=== PATIENT | female | born 1980 ===

== ENCOUNTER 2019-04-25 17:54 | Emergency (ER) | payer OTHER ==
[2019-04-25 18:08] VITALS: BP 109/70; PULSE 71; RESP 18; TEMP 98.4
--- NOTE | 2019-04-25 19:49 | ED ---
Upper Extremity HPI - General Chief Complaint: Extremity Injury, Upper Stated Complaint: [facility]-Wrist Injury Time Seen by Provider: 04/25/19 19:35 Source: patient Mode of arrival: ambulatory Limitations: no limitations - History of Present Illness Initial Comments: Patient is a 38-year-old female presents to the ER with left wrist pain. Patient states she has been having pain in her left wrist for about a month now. She works on an assembly line making Meters for cars. She was working today when one of the meters fell onto her palmar aspect of her left wrist and her pain increased. Patient reports some numbness and tingling into her hand. Patient is right-handed dominant. Patient reports no other injuries or complaints at this time. - Related Data Allergies Allergy/AdvReac Type Severity Reaction Status Date / Time vancomycin Allergy Anaphylaxis Verified 04/25/19 18:09 Review of Systems ROS Statement: Those systems with pertinent positive or pertinent negative responses have been documented in the HPI. ROS Other: All systems not noted in ROS Statement are negative. Past Medical History Past Medical History: No Reported History History of Any Multi-Drug Resistant Organisms: None Reported Past Surgical History: Hysterectomy Additional Past Surgical History / Comment(s): cyst on tail bone removed Past Psychological History: No Psychological Hx Reported Smoking Status: Never smoker Past Alcohol Use History: Occasional Past Drug Use History: None Reported General Exam - General Exam Comments Initial Comments: GENERAL: Well-appearing, well-nourished and in no acute distress. HEAD: Atraumatic, normocephalic. EYES: Pupils equal round and reactive to light, extraocular movements intact, sclera anicteric, conjunctiva are normal. ENT: TMs normal, nares patent, oropharynx clear without exudates. Moist mucous membranes. NECK: Normal range of motion, supple without lymphadenopathy or JVD. LUNGS: Breath sounds clear to auscultation bilaterally and equal. No wheezes rales or rhonchi. HEART: Regular rate and rhythm without murmurs, rubs or gallops. ABDOMEN: Soft, nontender, normoactive bowel sounds. No guarding, no rebound. No masses appreciated. : Deferred EXTREMITIES: Pain with palpitation over the entire left wrist area mostly palmar aspect. Patient is unable to flex or extend wrist. Patient is able to pronate and supinate. Strength is not tested at this time due to pain. No erythema or bruising noted. NEUROLOGICAL: Cranial nerves II through XII grossly intact. Normal speech, normal gait. PSYCH: Normal mood, normal affect. SKIN: Warm, Dry, normal turgor, no rashes or lesions noted. Limitations: no limitations Course Vital Signs 04/25/19 18:04 Temperature 98.4 F Pulse Rate 71 Respiratory 18 Rate Blood Pressure 109/70 O2 Sat by Pulse 98 Oximetry Medical Decision Making - Medical Decision Making Patient is a 38-year-old female complaining of left wrist pain. Patient states she has had pain in this left wrist for about a month but then today ammeter from work fell onto the palmar aspect of her left wrist increasing her pain. On exam she is unable to extend or flex the wrist and is having tenderness all around the wrist. X-ray left wrist reveals no no fractures. Discussed with patient this is most likely carpal tunnel syndrome. Recommended brace to wear while sleeping. Case discussed with Dr. Cleaning. Disposition Clinical Impression: Wrist pain, left, Carpal tunnel syndrome of left wrist Disposition: HOME SELF-CARE Condition: Stable Instructions (If sedation given, give patient instructions): Wrist Injury (ED) Additional Instructions: Please return to the Emergency Department if symptoms worsen or any other concerns. Follow-up with hand specialist in one week if symptoms continue. Is patient prescribed a controlled substance at d/c from ED?: No Referrals: None,Stated [Primary Care Provider] - 1-2 days
--- NOTE | 2019-04-25 20:39 | XR ---
EXAMINATION TYPE: XR wrist complete LT DATE OF EXAM: 04/25/2019 COMPARISON: NONE HISTORY: Wrist pain TECHNIQUE: 4 views FINDINGS: Carpal bones appear intact. I see no fracture nor dislocation. Joint spaces are normal. IMPRESSION: Normal left wrist.
== END 2019-04-25 21:21 | disposition home or self-care (01) ==
LOC: EC 17:54
DX: G56.02 Carpal tunnel syndrome, left upper limb (principal); Z88.1 Allergy status to other antibiotic agents
CPT/HCPCS: 99283

== ENCOUNTER → 2020-07-12 | Outpatient (CLI) | payer OTHER ==
--- NOTE | 2020-07-12 14:46 | XR ---
EXAMINATION TYPE: XR hand complete RT DATE OF EXAM: 07/12/2020 COMPARISON: None HISTORY: Pain TECHNIQUE: Three-view right hand FINDINGS: No acute fractures or dislocations are evident. Soft tissues appear normal. Joint spaces ar e preserved. Attention is paid to the fifth digit at the location of the patient's greatest pain. Follow-up exams can be performed 7-10 days from acute trauma for continued pain. IMPRESSION: 1. No acute osseous abnormality right hand.
--- NOTE | 2020-07-12 14:47 | XR ---
EXAMINATION TYPE: XR forearm RT DATE OF EXAM: 07/12/2020 COMPARISON: None HISTORY: Pain TECHNIQUE: 2 view right forearm FINDINGS: Right forearm is examined in 2 projections. No acute fractures or dislocations are evident. A small olecranon spur is present. Radius aligns normally with the humerus. No suspicious abnormalit y along the ulnar aspect of the forearm is evident at the location of the patient's forearm pain. Follow-up studies can be performed 7-10 days from acute trauma for continued pain. IMPRESSION: 1. Normal two-view performed
--- NOTE | 2020-07-12 14:49 | XR ---
EXAMINATION TYPE: XR wrist complete RT DATE OF EXAM: 07/12/2020 COMPARISON: None HISTORY: Pain TECHNIQUE: 4 view right wrist FINDINGS: No acute fractures or dislocations are evident. Joint spaces are preserved. Soft tissues ar e normal. If there is pain at the anatomic snuff box, nuclear medicine bone scan could be performed for additio nal evaluation. Follow-up exams can be performed 7-10 days from acute trauma for continued pain. IMPRESSION: 1. No acute osseous abnormality right wrist.
== END | disposition home or self-care (01) ==
LOC: RADXRMAIN 14:20
PROVIDERS: ATTEND Emergency Medicine
DX: S56.21 Strain of other flexor muscle, fascia and tendon at forearm level (principal); S66.110A Strain of flexor muscle, fascia and tendon of right index finger at wrist and hand level, initial encounter

== ENCOUNTER → 2020-10-13 | Outpatient (CLI) | payer SELFPAY ==
--- NOTE | 2020-10-13 09:12 | MM ---
Reason for exam: screening (asymptomatic). Baseline mammogram. Physical Findings: Nurse Summary: 1.5cm nodule in the left breast at 3 o'clock (nurse sakina). MG Screening Mammo w CAD Bilateral CC and MLO view(s) were taken. The breast tissue is heterogeneously dense. This may lower the sensitivity of mammography. No suspicious calcifications are seen. These results were verbally communicated with the patient and result sheet given to the patient on 10/13/20. ASSESSMENT: Incomplete: need additional imaging evaluation, BI-RAD 0 RECOMMENDATION: Ultrasound of the left breast. Manage patient on a clinical basis.
--- NOTE | 2020-10-13 09:13 | USB ---
Reason for exam: additional evaluation requested from abnormal screening. US Breast Workup Limited LT Left limited breast ultrasound including focal area of concern, retroareolar and axilla demonstrates no cystic or solid lesion seen. These results were verbally communicated with the patient and result sheet given to the patient on 10/13/20. ASSESSMENT: Negative, BI-RAD 1 RECOMMENDATION: Routine screening mammogram of both breasts in 1 year. Manage patient on a clinical basis.
== END | disposition home or self-care (01) ==
LOC: RADMAMWWP 07:21
PROVIDERS: ATTEND Internal Medicine
DX: Z12.31 Encounter for screening mammogram for malignant neoplasm of breast (principal); N63.20 Unspecified lump in the left breast, unspecified quadrant
CPT/HCPCS: 77067

== ENCOUNTER 2022-01-10 07:20 | Day surgery (SDC) | payer BC ==
[2022-01-06 10:04] VITALS: BMI 25.2
[~2022-01-10 07:20] MED LIST: LIDOCAINE 1% (10MG/ML) FOR IV START INTRADERMA PRN
[2022-01-10 08:13] LABS: Glucose,Whole Blood 143 mg/dL (75-99)
[2022-01-10] MEDS: LACTATED RINGERS 1,000 ML IV SCH ×2 (08:13→08:46)
[2022-01-10 08:14] VITALS: RESP 16; TEMP 98.1
[2022-01-10] MEDS ORDERED: PROPOFOL 10 MG/ML 20 ML VIAL IV ONE (08:48)
--- NOTE | 2022-01-10 09:05 | P.PCN ---
Date of Procedure: 01/10/22 Procedure(s) Performed: BRIEF HISTORY: Patient is a 41-year-old pleasant female scheduled for an elective colonoscopy as a part of evaluation of change in bowel habits for the last few years duration. Patient states that she had a perforated colon requiring colostomy of the defecation the last 10 years while in [place]. Last surgery was 5 years ago. Currently having occasional constipation but no rectal bleeding. PROCEDURE PERFORMED: Colonoscopy. PREOPERATIVE DIAGNOSIS: In bowel habits. IV sedation per Anesthesia. PROCEDURE: After informed consent was obtained, the patient, was brought into the endoscopy unit. IV sedation was administered by Anesthesia under continuous monitoring. Digital rectal examination was normal. Initially the Olympus CF-160 flexible video colonoscope was then inserted in the rectum, gradually advanced into the cecum without any difficulty. Careful examination was performed as the scope was gradually being withdrawn. Ileocecal valve and the appendiceal orifice were visualized and appeared normal. Prep was excellent. Mucosa of the cecum, ascending colon, transverse colon, descending colon, sigmoid colon, and rectum appeared normal. Retroflexion was performed in the rectum and no lesions were seen. The patient tolerated the procedure well. IMPRESSION: Normal-appearing colon from rectum to cecum no evidence of colorectal neoplasia. RECOMMENDATIONS: Findings of this examination were discussed with the patient as well as a family. She was advised to have a repeat screening colonoscopy in 10 years..
[2022-01-10 09:31] VITALS: BP 98/61; PULSE 71
== END 2022-01-10 10:06 | disposition home or self-care (01) ==
LOC: ORWHC2ENDO 07:20
PROVIDERS: ATTEND Internal Medicine Gastroenterology
DX: K59.00 Constipation, unspecified (principal); Z79.84 Long term (current) use of oral hypoglycemic drugs; Z79.891 Long term (current) use of opiate analgesic; Z88.1 Allergy status to other antibiotic agents; Z87.891 Personal history of nicotine dependence; E11.9 Type 2 diabetes mellitus without complications
CPT/HCPCS: 45378; J2704

== ENCOUNTER → 2022-01-10 | Outpatient (CLI) | payer BC ==
--- NOTE | 2022-01-11 14:03 | MM ---
Reason for exam: screening (asymptomatic). Last mammogram was performed 1 year and 3 months ago. Physical Findings: A clinical breast exam by your physician is recommended on an annual basis and results should be correlated with mammographic findings. MG Screening Mammo w CAD Bilateral CC and MLO view(s) were taken. Prior study comparison: October 13, 2020, bilateral MG screening mammo w CAD. The breast tissue is extremely dense which could obscure a lesion on mammography. No significant changes when compared with prior studies. ASSESSMENT: Benign, BI-RAD 2 RECOMMENDATION: Routine screening mammogram of both breasts in 1 year.
== END | disposition home or self-care (01) ==
LOC: RADMAMWWP 07:03
PROVIDERS: ATTEND Family Medicine
DX: Z12.31 Encounter for screening mammogram for malignant neoplasm of breast (principal)
CPT/HCPCS: 77067

== ENCOUNTER 2022-01-13 11:13 | Observation (INO) | payer BC ==
[2022-01-13] MEDS ORDERED: SODIUM CHLORIDE 0.9% 1,000 ML IV STA (12:00)
--- NOTE | 2022-01-13 12:00 | ED ---
General Adult HPI - General Chief complaint: Recheck/Abnormal Lab/Rx Stated complaint: poss skin infection Source: patient Mode of arrival: ambulatory Limitations: no limitations - History of Present Illness Initial comments: 41-year-old female with past medical history of tummy tuck/liposuction on October 31 in [place] presents to the emergency Department with abdominal wall i nduration and redness. She states that a few hours after her procedure she ended up septic from her procedure. States that she developed significant cellulitis of her abdominal wall. She was so sick that she crossed the border into [place] and was hospitalized there for 2 weeks in the ICU. States that she was on IV antibiotics. She was then discharged home on antibiotics for an additional 2 weeks. She began having redness, firmness to the abdominal wall over the past week and is concerned for recurrent infection. She did not require any revision surgeries. She does not have a surgeon in the area. - Related Data Home Medications Medication Instructions Recorded Confirmed Dapagliflozin Propanediol [Farxiga] 10 mg PO QAM 01/06/22 01/13/22 traMADol HCL [Ultram] 50 mg PO Q8HR PRN 01/06/22 01/13/22 Allergies Allergy/AdvReac Type Severity Reaction Status Date / Time vancomycin Allergy Anaphylaxis Verified 01/13/22 12:04 Review of Systems ROS Statement: Those systems with pertinent positive or pertinent negative responses have been documented in the HPI. ROS Other: All systems not noted in ROS Statement are negative. Past Medical History Past Medical History: Diabetes Mellitus Additional Past Medical History / Comment(s): low blood pressure, History of Any Multi-Drug Resistant Organisms: None Reported Past Surgical History: Cholecystectomy, Hysterectomy Additional Past Surgical History / Comment(s): cyst on tail bone removed, "tummy tuck"-Oct 2021 in [place] Past Anesthesia/Blood Transfusion Reactions: Postoperative Nausea & Vomiting (PONV) Additional Past Anesthesia/Blood Transfusion Reaction / Comment(s): ICU For 2 weeks with blood infections after one surgery Oct 2021(In [place]) Past Psychological History: No Psychological Hx Reported Smoking Status: Former smoker Past Alcohol Use History: None Reported Past Drug Use History: None Reported - Past Family History Mother Family Medical History: No Reported History General Exam Limitations: no limitations General appearance: alert, in no apparent distress Head exam: Present: atraumatic, normocephalic, normal inspection Eye exam: Present: normal appearance, PERRL, EOMI. Absent: scleral icterus, conjunctival injection, periorbital swelling ENT exam: Present: normal exam, mucous membranes moist Neck exam: Present: normal inspection. Absent: tenderness, meningismus, lymphadenopathy Respiratory exam: Present: normal lung sounds bilaterally. Absent: respiratory distress, wheezes, rales, rhonchi, stridor Cardiovascular Exam: Present: regular rate, normal rhythm, normal heart sounds. Absent: systolic murmur, diastolic murmur, rubs, gallop, clicks GI/Abdominal exam: Present: soft, tenderness, guarding, normal bowel sounds, other (abdominoplasty scar runs horizontally across the abdomen measuring 25 cm in length. There is a smaller midline vertical incision. Redness and induration along abd wall surrounding incision and tracking to right flank. No fluctance. No drainage). Absent: distended, rebound, rigid Extremities exam: Present: normal inspection, full ROM, normal capillary refill. Absent: tenderness, pedal edema, joint swelling, calf tenderness Back exam: Present: normal inspection Neurological exam: Present: alert, oriented X3, CN II-XII intact Psychiatric exam: Present: normal affect, normal mood Skin exam: Present: warm, dry, intact, normal color. Absent: rash Course Vital Signs 01/13/22 01/13/22 01/13/22 11:16 12:16 15:00 Temperature 98.2 F Pulse Rate 75 68 71 Respiratory 18 18 18 Rate Blood Pressure 125/80 100/62 102/53 O2 Sat by Pulse 100 100 100 Oximetry 01/13/22 01/13/22 01/13/22 16:32 18:29 20:09 Temperature 97.9 F Pulse Rate 76 80 78 Respiratory 18 18 16 Rate Blood Pressure 105/69 112/68 O2 Sat by Pulse 98 100 98 Oximetry Medical Decision Making - Medical Decision Making Upon arrival patient is placed into room 21. A thorough history and physical exam was performed. IV access is established. Patient is given pain medications, nausea medications and a liter bolus of normal saline. Laboratory studies are conducted. Lab restudies within normal limits. CT abdomen and pelvis is consistent with abdominal wall cellulitis. There is additionally a 13.7 cm x 7 cm cystic mass in the left lower quadrant with internal septations consistent with lymphocele, mesenteric cyst or possibly ovarian cystic mass. Results are discussed with the patient. Did recommend admission for which the patient agreed to. She is started on Unasyn after blood cultures are obtained. Spoke with Dr. Ivan. Surgery will be placed on consult - Lab Data Result diagrams: 01/15/22 06:06 01/15/22 06:06 Lab Results 01/13/22 01/13/22 01/13/22 Range/Units 12:20 12:20 12:20 WBC 5.1 (3.8-10.6) k/uL RBC 5.25 (3.80-5.40) m/uL Hgb 13.8 (11.4-16.0) gm/dL Hct 42.3 (34.0-46.0) % MCV 80.6 (80.0-100.0) fL MCH 26.3 (25.0-35.0) pg MCHC 32.7 (31.0-37.0) g/dL RDW 16.8 H (11.5-15.5) % Plt Count 195 (150-450) k/uL MPV 9.8 Neutrophils % 76 % Lymphocytes % 17 % Monocytes % 5 % Eosinophils % 1 % Basophils % 1 % Neutrophils # 3.9 (1.3-7.7) k/uL Lymphocytes # 0.9 L (1.0-4.8) k/uL Monocytes # 0.2 (0-1.0) k/uL Eosinophils # 0.0 (0-0.7) k/uL Basophils # 0.0 (0-0.2) k/uL Hypochromasia Slight Anisocytosis Slight Microcytosis Slight Sodium 134 L (137-145) mmol/L Potassium 4.3 (3.5-5.1) mmol/L Chloride 103 (98-107) mmol/L Carbon Dioxide 22 (22-30) mmol/L Anion Gap 9 mmol/L BUN 11 (7-17) mg/dL Creatinine 0.47 L (0.52-1.04) mg/dL Est GFR (CKD-EPI)AfAm >90 (>60 ml/min/1.73 sqM) Est GFR (CKD-EPI)NonAf >90 (>60 ml/min/1.73 sqM) Glucose 133 H (74-99) mg/dL Plasma Lactic Acid Bernardino 1.0 (0.7-2.0) mmol/L Calcium 9.5 (8.4-10.2) mg/dL Total Bilirubin 0.8 (0.2-1.3) mg/dL AST 37 H (14-36) U/L ALT 33 (4-34) U/L Alkaline Phosphatase 87 (38-126) U/L Total Protein 8.1 (6.3-8.2) g/dL Albumin 4.4 (3.5-5.0) g/dL Disposition Clinical Impression: Abdominal wall cellulitis, S/P abdominoplasty Disposition: ADMITTED IP TO THIS HOSP Condition: Stable Is patient prescribed a controlled substance at d/c from ED?: No Decision to Admit Reason: Admit from EC Decision Date: 01/13/22 Decision Time: 15:16
[2022-01-13] MEDS ORDERED: MORPHINE SULFATE 4 MG/ML SYRINGE IVP STA (12:01)
[2022-01-13 13:29] LABS: ALT 33 U/L (4-34); AST 37 U/L (14-36); African American GFR (CKD) >90 (>60 ml/min/1.73 sqM); Albumin 4.4 g/dL (3.5-5.0); Alkaline Phosphatase 87 U/L (38-126); Anion Gap 9 mmol/L; Anisocytosis Slight; Basophils % (A) 1 %; Blood Urea Nitrogen 11 mg/dL (7-17); Calcium 9.5 mg/dL (8.4-10.2); Carbon Dioxide 22 mmol/L (22-30); Chloride 103 mmol/L (98-107); Eosinophils % (A) 1 %; Glucose 133 mg/dL (74-99); HCT 42.3 % (34.0-46.0); HGB 13.8 gm/dL (11.4-16.0); Hypochromasia Slight; Lymphocytes # (A) 0.9 k/uL (1.0-4.8); Lymphocytes % (A) 17 %; MCH 26.3 pg (25.0-35.0); MCHC 32.7 g/dL (31.0-37.0); MCV 80.6 fL (80.0-100.0); Mean Platelet Volume 9.8; Microcytosis Slight; Monocytes # (A) 0.2 k/uL (0-1.0); Monocytes % (A) 5 %; Neutrophils # (A) 3.9 k/uL (1.3-7.7); Neutrophils % (A) 76 %; Non-African American GFR(CKD) >90 (>60 ml/min/1.73 sqM); Platelet Count 195 k/uL (150-450); Potassium 4.3 mmol/L (3.5-5.1); RBC 5.25 m/uL (3.80-5.40); RDW 16.8 % (11.5-15.5); Sodium 134 mmol/L (137-145); Total Bilirubin 0.8 mg/dL (0.2-1.3); Total Protein 8.1 g/dL (6.3-8.2); WBC 5.1 k/uL (3.8-10.6)
--- NOTE | 2022-01-13 14:18 | CT ---
EXAMINATION TYPE: CT abdomen pelvis w con DATE OF EXAM: 01/13/2022 COMPARISON: None HISTORY: Cellulitis CT DLP: 754.5 mGycm Automated exposure control for dose reduction was used. TECHNIQUE: Helical acquisition of images from the lung bases through the pelvis have been completed. CONTRAST: Performed without Oral Contrast and with IV Contrast, patient injected 100 mL of Isovue M300. FINDINGS: Diffuse subcutaneous fat increased density is present consistent with patient's history of liposuction and cellulitis LUNG BASES: No significant abnormality is appreciated. AORTA: No significant abnormality is appreciated. LIVER/GB: Patient is post cholecystectomy. Dilation of intrahepatic biliary ducts, extrahepatic deliv ashley duct likely due to postcholecystectomy change PANCREAS: No significant abnormality is seen. SPLEEN: Enlarged ADRENALS: No significant abnormality is seen. KIDNEYS: There is a fat-containing mass at the upper pole anteriorly the right kidney measuring 2 cm, possible angiomyolipoma REPRODUCTIVE ORGANS: There is a large cystic mass in the left adnexal region extending cephalad in th e left lower quadrant with internal septations and overall measuring approximately 13.7 cm in cephala d to caudal dimension by 14.4 cm in transverse dimension by 7.1 cm AP dimension. Multiple surgical cl ips are present within the mesenteric fat. Uterus and adnexal structures not seen. BOWEL: No significant abnormality is seen. FREE AIR: No Free Air visible. ASCITES: None visible. PELVIC ADENOPATHY: None visualized. RETROPERITONEAL ADENOPATHY: No Retroperitoneal Adenopathy visible. URINARY BLADDER: No significant abnormality is seen. OSSEOUS STRUCTURES: Question prior intervention at the level of the coccyx which shows a somewhat ir regular appearance and may be partially absent Presacral soft tissue thickening shows a nonaggressive appearance, correlate for prior intervention at this level. IMPRESSION: FINDINGS CONSISTENT WITH PATIENT'S HISTORY OF CELLULITIS. THERE MAY BE LYMPHOCELE OR MESENTERIC CYST OR POSSIBLY OVARIAN CYSTIC MASS, CORRELATE WITH APPROPRIATE SURGICAL HISTORY, CONSIDER SURGICAL, PAPER LATCHER CONSULT. POSTOP CHANGES. SPLENOMEGALY. ADDITIONAL FINDINGS ABOVE.
[2022-01-13] MEDS ORDERED: AMPICILLIN-SULBACTAM 3 GM in SODIUM CHLORIDE 0.9% 100 ML IVPB STA (14:39)
[2022-01-13] MEDS ORDERED: NALOXONE 0.4 MG/ML 1 ML VIAL IV PRN (15:16)
[2022-01-13] MEDS ORDERED: MORPHINE SULFATE 4 MG/ML SYRINGE IV PRN (15:19)
[2022-01-13] MEDS ORDERED: ONDANSETRON 4 MG/2 ML VIAL IVP PRN (15:19)
--- NOTE | 2022-01-13 16:05 | P.HPIM ---
History of Present Illness H&P Date: 01/13/22 Patient is a 41-year-old female with a possible significant [place]os[place] who presents to the Emergency Department secondary to abdominal discomfort/induration. Posterior patient was treated for sepsis and sepsis syndrome after the surgical procedure. She stated the ICU for approximately 2 weeks received a course of IV antibiotics and was discharged on additional 2 weeks of oral antibiotics. Vital signs the emergency department reviewed patient's current afebrile, no leukocytosis. Hemoglobin stable at 13.8, BNP was also review of x-rays within normal limits 0.47, sodium 134. CT of the abdomen and pelvis was completed which showed finding consistent with c ellulitis with possible lymphocele or mesenteric cyst/ovarian cystic mass. Transvaginal ultrasound was ordered by the emergency department. Patient has been empirically started on IV Unasyn given her ALLERGY to vancomycin. 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 This is apparently removed by general surgeon as per patient in [place] 5 years ago including her tailbone. Patient also states that in the ICU in [place] she went into septic shock. Past Medical History Past Medical History: Diabetes Mellitus Additional Past Medical History / Comment(s): low blood pressure, History of Any Multi-Drug Resistant Organisms: None Reported Past Surgical History: Cholecystectomy, Hysterectomy Additional Past Surgical History / Comment(s): cyst on tail bone removed, "tummy tuck"-Oct 2021 in [place] Past Anesthesia/Blood Transfusion Reactions: Postoperative Nausea & Vomiting (PONV) Additional Past Anesthesia/Blood Transfusion Reaction / Comment(s): ICU For 2 weeks with blood infections after one surgery Oct 2021(In [place]) Past Psychological History: No Psychological Hx Reported Smoking Status: Former smoker Past Alcohol Use History: None Reported Past Drug Use History: None Reported - Past Family History Mother Family Medical History: No Reported History Medications and Allergies Home Medications Medication Instructions Recorded Confirmed Type Dapagliflozin Propanediol [Farxiga] 10 mg PO QAM 01/06/22 01/13/22 History traMADol HCL [Ultram] 50 mg PO Q8HR PRN 01/06/22 01/13/22 History Allergies Allergy/AdvReac Type Severity Reaction Status Date / Time vancomycin Allergy Anaphylaxis Verified 01/13/22 12:04 Physical Exam Vitals: Vital Signs Temp Pulse Resp BP Pulse Ox 01/13/22 15:00 71 18 102/53 100 01/13/22 12:16 68 18 100/62 100 01/13/22 11:16 98.2 F 75 18 125/80 100 Intake and Output 01/13/22 01/13/22 01/13/22 06:59 14:59 22:59 Other: Weight 56.699 kg Gen. patient is awake alert oriented 3 Cardio normal S1/S2 no murmurs rubs or gallops appreciated Respiratory no wheezing or rhonchi appreciated bilateral air entry Abdomen soft, nontender, erythematous cellulitic changes noted Psych patient is awake alert oriented nonagitated skin: surgical scars noted aroun the lower abdomen/hip b/l, erythema more R>L and also a small patch noted at the back. -very minimal drainage which is clear noted. Results CBC & Chem 7: 01/13/22 12:20 01/13/22 12:20 Labs: Abnormal Lab Results - Last 24 Hours (Table) 01/13/22 01/13/22 Range/Units 12:20 12:20 RDW 16.8 H (11.5-15.5) % Lymphocytes # 0.9 L (1.0-4.8) k/uL Sodium 134 L (137-145) mmol/L Creatinine 0.47 L (0.52-1.04) mg/dL Glucose 133 H (74-99) mg/dL AST 37 H (14-36) U/L Assessment and Plan Assessment: Assessment: #1 cellulitis of the abdomen #2 status post tummy tuck/liposuction Plan: -Admitted to medicine for close monitoring -Aspiration/fall precaution -Continue with IV Unasyn, IV consulted -Patient is ALLERGIC to vancomycin -We'll obtain transvaginal ultrasound -Surgical team consult pending further recommendations -Pain control when necessary DVT Px: Lovenox 40 daily.
--- NOTE | 2022-01-13 16:26 | P.GSCN ---
History of Present Illness Consult date: 01/13/22 Reason for Consult: Cellulitis of abdominal wall, history of recent abdominoplasty, diabetes mellitus type 2, pelvic and intra-abdominal cyst History of present illness: Patient is a 41-year-old lady who presents to [facility] emergency department on 01/13/2022 with chief complaints of what she describes as a redness and tenderness over left lower quadrant abdominal wall with extension along a previous abdominoplasty scar to the right to the area of the right flank. She denies drainage. She admits to subjective fever or chills over the past 48 hours. No significant nausea or vomiting, no issues with bowel movement or urination. She tells me 48 hours ago she underwent colonoscopy with Dr. Cole and there were no findings of concern. The patient underwent an abdominoplasty in [place] this past October 31 complicated by postoperative infection and sepsis. She was admitted to [facility] in [place] for some 2 weeks, discharged on oral antibiotics which were completed early this past November. Patient has a history of diabetes mellitus type 2 on oral hypoglycemics, denies history of inflammatory bowel disease or family history of colon cancer. Her surgical history is quite complex. She tells me in her early 20s she had what she recalls was problems with of bowel or rectal perforation that required diversion with colostomy. It took some time to find the underlying issue and she eventually had some sort of cystic lesion removed from the peritoneum or coccygeal region with resection of the some of the bone. Ostomy was subsequently reversed she describes several exploratory laparotomies around this timeframe. It sounds like these surgeries were all performed in [place], she also underwent an open hysterectomy and had 1 ovary removed. Computed tomography scan of the abdomen and pelvis was obtained, images and official report were reviewed. There is some fat stranding and inflammatory change about the left anterior abdominal wall without abscess or emphysematous changes to suggest abscess or necrotizing fasciitis. There is a rather large 14 x 13 cm septated fluid collection in the left pelvis surrounded by surgical clips and extending into the abdomen. There is no free air, no significant free fluid, no evidence of obstruction. Patient is status post cholecystectomy was some mild dilation of extrahepatic biliary ducts. No evidence of ventral hernia. Laboratory studies including CBC and conference of metabolic panel are unimpressive with the exception of an elevated RDW. Review of Systems All systems: negative - Constitutional Reports as per HPI, Reports chills, Reports fever Past Medical History Past Medical History: Diabetes Mellitus Additional Past Medical History / Comment(s): low blood pressure, History of Any Multi-Drug Resistant Organisms: None Reported Past Surgical History: Cholecystectomy, Hysterectomy Additional Past Surgical History / Comment(s): cyst on tail bone removed, "tummy tuck"-Oct 2021 in [place] Past Anesthesia/Blood Transfusion Reactions: Postoperative Nausea & Vomiting (PONV) Additional Past Anesthesia/Blood Transfusion Reaction / Comm: ICU For 2 weeks with blood infections after one surgery Oct 2021(In [place]) Past Psychological History: No Psychological Hx Reported Smoking Status: Former smoker Past Alcohol Use History: None Reported Past Drug Use History: None Reported - Past Family History Mother Family Medical History: No Reported History Medications and Allergies Home Medications Medication Instructions Recorded Confirmed Type Dapagliflozin Propanediol [Farxiga] 10 mg PO QAM 01/06/22 01/13/22 History traMADol HCL [Ultram] 50 mg PO Q8HR PRN 01/06/22 01/13/22 History Allergies Allergy/AdvReac Type Severity Reaction Status Date / Time vancomycin Allergy Anaphylaxis Verified 01/13/22 12:04 Surgical - Exam Osteopathic Statement: *. No significant issues noted on an osteopathic structural exam other than those noted in the History and Physical/Consult. Vital Signs Temp Pulse Resp BP Pulse Ox 98.2 F 75 18 125/80 100 01/13/22 11:16 01/13/22 11:16 01/13/22 11:16 01/13/22 11:16 01/13/22 11:16 - General well developed, well nourished, no distress - Eyes PERRL, normal ocular movement - ENT normal pinna, normal nares, normal mucosa - Respiratory normal expansion, normal respiratory effort, clear to auscultation - Cardiovascular Rhythm: regular - Abdomen Patient has a scar from what appears to be a modified [id number] abdominoplasty with some soft tissue induration about the left lower quadrant mild overlying erythema with mild associated tenderness. I don't appreciate any fluctuance or Abscess, no tenderness out of proportion to exam, no soft tissue crepitance. Abdomen is otherwise soft and nontender to palpation without guarding rebound or distention. Abdomen: soft Results - Labs 01/13/22 12:20 02/25/22 12:20 Abnormal Lab Results - Last 24 Hours (Table) 01/13/22 01/13/22 Range/Units 12:20 12:20 RDW 16.8 H (11.5-15.5) % Lymphocytes # 0.9 L (1.0-4.8) k/uL Sodium 134 L (137-145) mmol/L Creatinine 0.47 L (0.52-1.04) mg/dL Glucose 133 H (74-99) mg/dL AST 37 H (14-36) U/L Diabetes panel 01/13/22 Range/Units 12:20 Sodium 134 L (137-145) mmol/L Potassium 4.3 (3.5-5.1) mmol/L Chloride 103 (98-107) mmol/L Carbon Dioxide 22 (22-30) mmol/L BUN 11 (7-17) mg/dL Creatinine 0.47 L (0.52-1.04) mg/dL Glucose 133 H (74-99) mg/dL Calcium 9.5 (8.4-10.2) mg/dL AST 37 H (14-36) U/L ALT 33 (4-34) U/L Alkaline Phosphatase 87 (38-126) U/L Total Protein 8.1 (6.3-8.2) g/dL Albumin 4.4 (3.5-5.0) g/dL Calcium panel 01/13/22 Range/Units 12:20 Calcium 9.5 (8.4-10.2) mg/dL Albumin 4.4 (3.5-5.0) g/dL Pituitary panel 01/13/22 Range/Units 12:20 Sodium 134 L (137-145) mmol/L Potassium 4.3 (3.5-5.1) mmol/L Chloride 103 (98-107) mmol/L Carbon Dioxide 22 (22-30) mmol/L BUN 11 (7-17) mg/dL Creatinine 0.47 L (0.52-1.04) mg/dL Glucose 133 H (74-99) mg/dL Calcium 9.5 (8.4-10.2) mg/dL Adrenal panel 01/13/22 Range/Units 12:20 Sodium 134 L (137-145) mmol/L Potassium 4.3 (3.5-5.1) mmol/L Chloride 103 (98-107) mmol/L Carbon Dioxide 22 (22-30) mmol/L BUN 11 (7-17) mg/dL Creatinine 0.47 L (0.52-1.04) mg/dL Glucose 133 H (74-99) mg/dL Calcium 9.5 (8.4-10.2) mg/dL Total Bilirubin 0.8 (0.2-1.3) mg/dL AST 37 H (14-36) U/L ALT 33 (4-34) U/L Alkaline Phosphatase 87 (38-126) U/L Total Protein 8.1 (6.3-8.2) g/dL Albumin 4.4 (3.5-5.0) g/dL - Imaging CT scan - abdomen: report reviewed, image reviewed US - pelvic: image reviewed Assessment and Plan Assessment: 41-year-old lady with what appear to be cellulitis of the superficial anterior abdominal wall of the left lower quadrant as demonstrated on physical exam and CT imaging in the setting of diabetes mellitus type 2 and recent colonoscopy and previous abdominoplasty complicated by infection and sepsis some 2 months ago. May relate a transient bacteremia in the setting of recent endoscopy in the setting of a relatively higher than average risk patient for infection. No discrete abscess seen, no clinical or radiographic signs of necrotizing fasciitis. Rather large 14 cm so septated left pelvic mass in the setting of multiple abdominal surgeries including hysterectomy and removal of one ovary, likely previous bowel resection, ostomy and reversal. May relate to gynecologic pathology, may relate to sequelae of intra-abdominal hematoma or lymphocele. Patient appears hemodynamically stable, no leukocytosis, no azotemia. Plan: Patient's been admitted to the medical service with Gen. surgery consultation. We'll consider ID consultation given recent antibiotics and a reported severe ALLERGY to vancomycin. Broad-spectrum coverage in the interim pending blood culture results. No indication for surgical interventions at present, we will follow. In the meantime I do not think this large septated fluid collection in the left pelvis is can indeed an urgent intervention. I suspect that she has a rather hostile abdomen given multiple previous explorations and an abundance of adjacent surgical clips, we will await the pelvic ultrasound report. Ideally I would like to have some previous imaging for comparison. For now it looks like a type of thing that warrants outpatient follow-up. Time with Patient: Greater than 30
[2022-01-13] MEDS: SODIUM CHLORIDE 0.9% 1,000 ML IV SCH ×2 (16:29→22:59)
--- NOTE | 2022-01-13 16:33 | US ---
EXAMINATION TYPE: US pelvis complete transvag DATE OF EXAM: 01/13/2022 COMPARISON: CT same date CLINICAL HISTORY: cystic mass, possible ovarian. Large mass, hysterectomy, possible Light oophorectom y per patient, abdominal plasty done in 10/2022 with history of sepsis. TECHNIQUE: Transvaginal (TV) and Transabdominal (TA) . Transabdominal sonographic images of the pel vis were acquired. Transvaginal sonographic images were medically necessary to better assess the fol lowing anatomy: Ovaries Date of LMP: 3 year ago EXAM MEASUREMENTS: Uterus: Surgically absent cm Endometrial Stripe: Surgically absent cm Right Ovary: 4.1 x 2.3 x2.2 cm Left Ovary: Surgically absent cm 1. Uterus: Surgically absent 2. Endometrium: Surgically absent 3. Right Ovary: complex area, possible follicle measuring 1.8 x 1.4 x 1.8 4. Left Ovary: Surgically absent Spectral, color and waveform doppler imaging shows good arterial and venous flow within the ovaries ; there is no evidence for ovarian torsion. 5. Bilateral Adnexa: Large cystic mass seen mostly in left adnexa 6. Posterior cul-de-sac: wnl Large complex cystic area measuring 14.5 x 17.5 x 6.5 cm. IMPRESSION: Cystic mass within the pelvis is confirmed
[2022-01-14] MEDS: SODIUM CHLORIDE 0.9% 1,000 ML IV SCH ×3 (06:21→21:18)
[2022-01-14 09:01] LABS: African American GFR (CKD) 163.7 (60.0-200.0); BUN/Creat Ratio 26.67 Ratio (12.00-20.00); Calcium 8.1 mg/dL (8.7-10.3); Non-African American GFR(CKD) 141.2 (60.0-200.0); Potassium 4.3 mmol/L (3.5-5.5)
--- NOTE | 2022-01-14 10:00 | P.PN ---
Subjective Progress Note Date: 01/14/22 Principal diagnosis: Cellulitis of the anterior abdominal wall, previous abdominoplasty and postoperative sepsis, diabetes mellitus type 2, large septated pelvic cyst Patient seen and examined at bedside. He has done well overnight. Still some issues with nausea and emesis but pain has nearly completely subsided. She is up to chair, denies fever or chills. Voiding without issue, feeling thirsty. On the whole feeling much better than on admission. Her pelvic ultrasound was completed and interpreted by radiology confirming the presence of a large septated left pelvic cyst that is described as involving the adnexa. Left ovary is surgically absent, right ovary is present with appear to be a small follicular cyst, uterus surgically absent as previously suggested. Objective - Vital Signs Vital signs: Vital Signs Temp 97.9 F 01/14/22 07:30 Pulse 74 01/14/22 07:30 Resp 15 01/14/22 07:30 BP 93/56 01/14/22 07:30 Pulse Ox 100 01/14/22 07:30 Intake & Output 01/13/22 01/14/22 01/14/22 18:59 06:59 18:59 Output Total 40 Balance -40 Weight 56.699 kg 56.699 kg Output: Emesis 40 Other: # Voids 1 - Constitutional General appearance: Present: average body habitus, cooperative, no acute distress - EENT Eyes: Present: PERRLA - Respiratory Respiratory: bilateral: CTA - Cardiovascular Rhythm: regular - Gastrointestinal Gastrointestinal Comment(s): Abdomen is soft with mild relatively superficial left lateral tenderness to palpation. Erythema in this area is nearly subsided, there is still some mild persistent subcutaneous induration. No tenderness out of proportion to exam, tenderness along the right aspect of her abdominoplasty incision is subsiding. No drainage. No soft tissue crepitance, no tenderness out of proportion to ex am, no clinical signs of necrotizing fasciitis. On the whole her exam is improved compared to yesterday. - Neurologic Neurologic: Present: CNII-XII intact - Musculoskeletal Musculoskeletal: Present: strength equal bilaterally - Psychiatric Psychiatric: Present: A&O x's 3, appropriate affect, intact judgment & insight - Labs CBC & Chem 7: 01/13/22 12:20 01/14/22 06:29 Labs: Abnormal Lab Results - Last 24 Hours (Table) 01/13/22 01/13/22 01/14/22 Range/Units 12:20 12:20 06:29 RDW 16.8 H (11.5-15.5) % Lymphocytes # 0.9 L (1.0-4.8) k/uL Sodium 134 L (137-145) mmol/L Carbon Dioxide 14.0 L (20.0-27.5) mmol/L BUN 8.0 L (9.0-27.0) mg/dL Creatinine 0.47 L 0.3 L (0.52-1.04) mg/dL BUN/Creatinine Ratio 26.67 H (12.00-20.00) Ratio Glucose 133 H 57 L (74-99) mg/dL Calcium 8.1 L (8.7-10.3) mg/dL AST 37 H (14-36) U/L - Imaging and Cardiology US - abdomen: report reviewed, image reviewed Assessment and Plan Assessment: 41-year-old lady with what appear to be cellulitis of the superficial anterior abdominal wall of the left lower quadrant as demonstrated on physical exam and CT imaging in the setting of diabetes mellitus type 2 and recent colonoscopy and previous abdominoplasty complicated by infection and sepsis some 2 months ago. May relate a transient bacteremia in the setting of recent endoscopy in the setting of a relatively higher than average risk patient for infection. No discrete abscess seen, no clinical or radiographic signs of necrotizing fasciitis. Incidental, rather large 14 cm so septated left pelvic mass in the setting of multiple abdominal surgeries including hysterectomy and removal of one ovary, likely previous bowel resection, ostomy and reversal. May relate to gynecologic pathology, may relate to sequelae of intra-abdominal hematoma or lymphocele. Patient appears hemodynamically stable, no leukocytosis, no azot emia. Clinically improving on IV antibiotics. No objective signs of sepsis. Plan: Continue with present IV antibiotic regimen, infectious disease consultation is pending. Advance to clear liquids as tolerated, no plans for surgical interventions presently as there is no associated abscess. Would recommend outpatient follow-up with gynecology with respect to this pelvic mass or cyst. A follow-up ultrasound in 4-6 weeks would likely be reasonable. Ideally would like to get a hold of her previous scans from [place], I suspect that this mass is not new and has been present for some time given septations demonstrated on imaging. It has no findings on CT concerning for intra-abdominal abscess. We will follow Time with Patient: Greater than 30
[2022-01-14 10:13] LABS: Basophils # (A) 0.02 X 10*3/uL (0.00-0.10); Basophils % (A) 0.4 %; Eosinophils # (A) 0.02 X 10*3/uL (0.04-0.35); Eosinophils % (A) 0.4 %; HCT 39.3 % (37.2-46.3); Immature Grans, Automated 0.2 %; Lymphocytes # (A) 0.96 X 10*3/uL (0.90-5.00); Lymphocytes % (A) 18.5 %; MCH 24.8 pg (27.0-32.0); MCHC 30.5 g/dL (32.0-37.0); MCV 81.2 fL (80.0-97.0); Mean Platelet Volume 11.7 fL (9.5-12.2); Monocytes % (A) 7.7 %; NRBC Per 100 WBC 0 /100 WBCS (0.0-0.0); Neutrophils # (A) 3.78 X 10*3/uL (1.80-7.70); Neutrophils % (A) 72.8 %; Platelet Count 191 X 10*3/uL (140-440); RBC 4.84 X 10*6/uL (4.10-5.20); RDW 16.8 % (11.5-14.5); WBC 5.19 X 10*3/uL (4.50-10.00)
--- NOTE | 2022-01-14 10:37 | P.CONS ---
History of Present Illness - Reason for Consult Consult date: 01/13/22 abdominal wall cellulitis post abdominoplasty Requesting physician: Suzi Rivera - Chief Complaint abd wall pain and redness x 2 days - History of Present Illness History of Present Illness : Patient is a 41-year-old female with a past medical history significant for abdominoplasty surgery was done in [place] in October 2021 complicated by postoperative infection and sepsis currently the patient was in ICU in [place] for some 2 weeks and discharged on oral antibiotics patient is unable to tell me the type of infection she has already anybody she was receiving patient not presenting to [facility] ER for evaluation of lower abdominal wall redness tenderness and fever that apparently started 2 days prior to presentation to the hospital patient mention she did have a fever and chills over the last 48 hours has been complaining of pain to the left lower abdominal area mostly sharp 5-6 out of 10 and no radiation with associated swelling or redness did have minimal drainage from one of the small wound she has from her lower abdominoplasty scar patient on presentation to the hospital was afebrile patient did have normal white count with no left shift kidney function was normal patient did have a CT of abdominal pelvis which did shows abdominal wall cellulitis may be a lymphocele or mesenteric cyst or possible ovarian cyst no mention of any intra-abdominal abscess, patient subsequently did have a transvaginal pelvic ultrasound large complex cystic area measuring 14.5X 17.5 X6 0.5 cm but not sure the exact origin of this mass patient was given a dose of Unasyn with the patient has tolerated infectious disease was consulted for further management of antibiotic therapy Review of system: CONSTITUTIONAL: Positive for weakness fever. EYES: No complaint. ENT: No complaint. RESPIRATORY: No complaint. CARDIOVASCULAR: No complaint. GENITOURINARY: As per history of present illness GASTROINTESTINAL: As per history of present illness. MUSCULOSKELETAL: No complaint. INTEGUMENTARY : No complaint. PSYCHOLOGIC: No complaint. ENDOCRINE: No complaint. NEUROLOGIC: No complaint. Past medical history : Reviewed, documented below Past surgical history : Reviewed, documented below Social history: Reviewed, documented below Medications: Reviewed, as documented below EXAMINATION: Vital sigans= Reviewed and documented below GENERAL DESCRIPTION: Middle-aged female lying in bed, no distress. No tachypnea or accessory muscle of respiration use. HEENT: Shows Pallor , no scleral icterus. Oral mucous membrane is dry. NECK: Trachea central, no thyromegaly. LUNGS: Unlabored breathing. Clear to auscultation anteriorly. No wheeze or crackle. HEART: S1, S2, regular rate and rhythm. ABDOMEN: Soft, lower abdominal wall swelling redness which is warm and tender to touch small wound which was cultured EXTREMITIES: No edema feet SKIN: No rash, no masses palpable. NEUROLOGICAL: The patient is awake, alert, oriented x3, mood and affect normal. LABS AND RADIOLOGY: Reviewed results see below Assessment : 1-Patient presented to hospital with a fever abdominal wall pain swelling redness concerning for abdominal wall cellulitis in this patient who recently did have a complicated postoperative course after abdominoplasty surgery now with evidence of abdominal wall cellulitis and a large complex cystic area in the pelvic questionable related to underlying pelvic organ/ovarian, clinical not behaving as an abscess in this patient with no white count and does not look toxic, will need to cover for possible gram-positive skin ruben for abdominal wall cellulitis. 2vancomycin allergy that would limit the number of antibiotics safe to use Plan: 1-we will start the patient on daptomycin 4 mg/kg daily 2-abdominal wall cultures has been obtained to guide further antibiotic therapy 3-patient to benefit from [employer] evaluation further complex cystic mass in the pelvis We will follow on clinical condition and cultures to further adjust medication if needed Thank you for this consultation we will follow the patient along with you Past Medical History Past Medical History: Diabetes Mellitus Additional Past Medical History / Comment(s): low blood pressure, History of Any Multi-Drug Resistant Organisms: None Reported Past Surgical History: Cholecystectomy, Hysterectomy Additional Past Surgical History / Comment(s): cyst on tail bone removed, "tummy tuck"-Oct 2021 in [place] Past Anesthesia/Blood Transfusion Reactions: Postoperative Nausea & Vomiting (PONV) Additional Past Anesthesia/Blood Transfusion Reaction / Comm: ICU For 2 weeks with blood infections after one surgery Oct 2021(In [place]) Past Psychological History: No Psychological Hx Reported Smoking Status: Former smoker Past Alcohol Use History: None Reported Past Drug Use History: None Reported - Past Family History Mother Family Medical History: No Reported History Medications and Allergies Home Medications Medication Instructions Recorded Confirmed Type Dapagliflozin Propanediol [Farxiga] 10 mg PO QAM 01/06/22 01/13/22 History traMADol HCL [Ultram] 50 mg PO Q8HR PRN 01/06/22 01/13/22 History Allergies Allergy/AdvReac Type Severity Reaction Status Date / Time vancomycin Allergy Anaphylaxis Verified 01/13/22 12:04 Physical Exam Vitals: Vital Signs Temp Pulse Resp BP Pulse Ox 01/13/22 15:00 71 18 102/53 100 01/13/22 12:16 68 18 100/62 100 01/13/22 11:16 98.2 F 75 18 125/80 100 Intake and Output 01/13/22 01/13/22 01/13/22 06:59 14:59 22:59 Other: Weight 56.699 kg Results CBC & Chem 7: 01/14/22 06:29 01/14/22 06:29 Labs: Abnormal Lab Results - Last 24 Hours (Table) 01/13/22 01/13/22 Range/Units 12:20 12:20 RDW 16.8 H (11.5-15.5) % Lymphocytes # 0.9 L (1.0-4.8) k/uL Sodium 134 L (137-145) mmol/L Creatinine 0.47 L (0.52-1.04) mg/dL Glucose 133 H (74-99) mg/dL AST 37 H (14-36) U/L
--- NOTE | 2022-01-14 10:50 | P.PN ---
Subjective Patient was examined at bedside today. Cellulitis is improving compared to yesterday with no drainage noted. Patient's abdominal pain has also subsided compared to yesterday she is more comfortable and nontoxic appearing. Objective - Vital Signs Vital signs: Vital Signs Temp 97.9 F 01/14/22 07:30 Pulse 74 01/14/22 07:30 Resp 15 01/14/22 07:30 BP 93/56 01/14/22 07:30 Pulse Ox 100 01/14/22 07:30 Intake & Output 01/13/22 01/14/22 01/14/22 18:59 06:59 18:59 Output Total 40 Balance -40 Weight 56.699 kg 56.699 kg Output: Emesis 40 Other: # Voids 1 - Exam Gen. patient is awake alert oriented 3 Cardio normal S1/S2 no murmurs rubs or gallops appreciated Respiratory no wheezing or rhonchi appreciated bilateral air entry Abdomen soft, nontender, erythematous cellulitic changes noted - this is improving compared to yday, no drainage noted today. Psych patient is awake alert oriented nonagitated skin: surgical scars noted around the lower abdomen/hip b/l, erythema more R>L and also a small patch noted at the back -this is also resolving today. -very minimal drainage which is clear noted. - none noted today. - Labs CBC & Chem 7: 01/14/22 06:29 01/14/22 06:29 Labs: Abnormal Lab Results - Last 24 Hours (Table) 01/13/22 01/13/22 01/14/22 Range/Units 12:20 12:20 06:29 MCH 24.8 L (27.0-32.0) pg MCHC 30.5 L (32.0-37.0) g/dL RDW 16.8 H 16.8 H (11.5-15.5) % Lymphocytes # 0.9 L (1.0-4.8) k/uL Eosinophils # 0.02 L (0.04-0.35) X 10*3/uL Sodium 134 L (137-145) mmol/L Carbon Dioxide (20.0-27.5) mmol/L BUN (9.0-27.0) mg/dL Creatinine 0.47 L (0.52-1.04) mg/dL BUN/Creatinine Ratio (12.00-20.00) Ratio Glucose 133 H (74-99) mg/dL Calcium (8.7-10.3) mg/dL AST 37 H (14-36) U/L 01/14/22 Range/Units 06:29 MCH (27.0-32.0) pg MCHC (32.0-37.0) g/dL RDW (11.5-15.5) % Lymphocytes # (1.0-4.8) k/uL Eosinophils # (0.04-0.35) X 10*3/uL Sodium (137-145) mmol/L Carbon Dioxide 14.0 L (20.0-27.5) mmol/L BUN 8.0 L (9.0-27.0) mg/dL Creatinine 0.3 L (0.52-1.04) mg/dL BUN/Creatinine Ratio 26.67 H (12.00-20.00) Ratio Glucose 57 L (74-99) mg/dL Calcium 8.1 L (8.7-10.3) mg/dL AST (14-36) U/L Assessment and Plan Assessment: Assessment: #1 cellulitis of the abdomen #2 status post tummy tuck/liposuction Plan: -Admitted to medicine for close monitoring -Aspiration/fall precaution -Continue with antimicrobial as per infectious disease team. -Transvaginal ultrasound reviewed. Recommendations from general surgery review. Discussed case with patient regarding outpatient follow-up in obtaining medical records from [place]. -Surgical team on board -Pain control when necessary -DVT Px: Lovenox 40 daily. -Advance diet.
[2022-01-14] MEDS ORDERED: MORPHINE SULFATE 2 MG/ML SYRINGE IVP PRN (10:51)
--- NOTE | 2022-01-14 16:30 | P.PN ---
Subjective Progress Note Date: 01/14/22 Principal diagnosis: Abdominal wall cellulitis Patient is a 41-year-old female with recent abdominoplasty done in [place] in October 2021 with a postop infection requiring admission to the ICU presenting to the hospital with left lower abdominal wall swelling and redness with minimal drainage has been diagnosed with abdominal wall cellulitis abnormal CT and ultrasound suspicious for possible ovarian cyst. On today's evaluation that is 01/14/2022, the patient denies having any fever or any chills, the patient is feeling slightly better today, the left lower abdominal wall pain swelling redness has slightly decreased minimal drainage no chest pain shortness of breath or cough no diarrhea Objective - Vital Signs Vital signs: Vital Signs Temp 97.9 F 01/14/22 07:30 Pulse 74 01/14/22 07:30 Resp 15 01/14/22 07:30 BP 93/56 01/14/22 07:30 Pulse Ox 100 01/14/22 07:30 Intake & Output 01/13/22 01/14/22 01/14/22 18:59 06:59 18:59 Output Total 40 Balance -40 Weight 56.699 kg 56.699 kg Output: Emesis 40 Other: # Voids 1 - Exam GENERAL DESCRIPTION: A middle-aged female lying in bed in no distress RESPIRATORY SYSTEM: Unlabored breathing , decreased breath sounds at bases HEART: S1 S2 regular rate and rhythm , ABDOMEN: Soft , left lower abdominal wall swelling and redness is slightly decreased, minimal drainage EXTREMITIES: No edema feet - Labs CBC & Chem 7: 01/14/22 06:29 01/14/22 06:29 Labs: Abnormal Lab Results - Last 24 Hours (Table) 01/14/22 01/14/22 Range/Units 06:29 06:29 MCH 24.8 L (27.0-32.0) pg MCHC 30.5 L (32.0-37.0) g/dL RDW 16.8 H (11.5-14.5) % Eosinophils # 0.02 L (0.04-0.35) X 10*3/uL Carbon Dioxide 14.0 L (20.0-27.5) mmol/L BUN 8.0 L (9.0-27.0) mg/dL Creatinine 0.3 L (0.6-1.5) mg/dL BUN/Creatinine Ratio 26.67 H (12.00-20.00) Ratio Glucose 57 L (70-110) mg/dL Calcium 8.1 L (8.7-10.3) mg/dL Microbiology - Last 24 Hours (Table) 01/13/22 12:41 Blood Culture - Preliminary Blood No Growth after 24 hours 01/13/22 12:21 Blood Culture - Preliminary Blood No Growth after 24 hours 01/14/22 00:20 Wound Culture - Preliminary Abdomen Assessment and Plan (1) Abdominal wall cellulitis Current Visit: Yes Status: Acute Code(s): L03.311 - CELLULITIS OF ABDOMINAL WALL SNOMED Code(s): 02493501 Plan: Patient with abdominal wall cellulitis with a recent abdominoplasty and a complicated postoperative course CT abdominal pelvis did not show any drainable abscess, cultures obtained yesterday are pending so far patient seemed to have clinically responded daptomycin to continue while waiting for the cultures to finalize Time with Patient: Less than 30
[2022-01-15] MEDS: SODIUM CHLORIDE 0.9% 1,000 ML IV SCH ×2 (05:55→16:39)
[2022-01-15 08:44] VITALS: RESP 15
[2022-01-15] MEDS ORDERED: ENOXAPARIN 40 MG/0.4 ML SYRINGE SQ SCH (09:00)
[2022-01-15 09:06] LABS: HCT 37.4 % (37.2-46.3); HGB 11.3 g/dL (12.0-15.0); MCH 24.6 pg (27.0-32.0); MCHC 30.2 g/dL (32.0-37.0); MCV 81.3 fL (80.0-97.0); Mean Platelet Volume 11.7 fL (9.5-12.2); NRBC Per 100 WBC 0 /100 WBCS (0.0-0.0); Platelet Count 209 X 10*3/uL (140-440); RDW 17.1 % (11.5-14.5); WBC 3.52 X 10*3/uL (4.50-10.00)
--- NOTE | 2022-01-15 09:22 | P.PN ---
Subjective Patient was examined at bedside today not complaining of any new symptomatology. Cellulitis is improving lower abdomen and back. I have advised her to obtain records from [place] including her computed tomography scan. Objective - Vital Signs Vital signs: Vital Signs Temp 98.3 F 01/15/22 07:30 Pulse 73 01/15/22 07:30 Resp 15 01/15/22 07:30 BP 108/71 01/15/22 07:30 Pulse Ox 100 01/15/22 07:30 Intake & Output 01/14/22 01/15/22 01/15/22 18:59 06:59 18:59 Intake Total 118 Balance 118 Intake: Oral 118 Other: # Voids 2 2 - Exam Gen. patient is awake alert oriented 3 Cardio normal S1/S2 no murmurs rubs or gallops appreciated Respiratory no wheezing or rhonchi appreciated bilateral air entry Abdomen soft, nontender, erythematous cellulitic changes noted - this is improving compared to yday, no drainage noted today. Psych patient is awake alert oriented nonagitated skin: surgical scars noted around the lower abdomen/hip b/l, erythema more R>L and also a small patch noted at the back -this is also resolving today. -very minimal drainage which is clear noted. - none noted today. - Labs CBC & Chem 7: 01/14/22 06:29 01/14/22 06:29 Labs: Abnormal Lab Results - Last 24 Hours (Table) 01/14/22 01/14/22 Range/Units 06:29 06:29 MCH 24.8 L (27.0-32.0) pg MCHC 30.5 L (32.0-37.0) g/dL RDW 16.8 H (11.5-14.5) % Eosinophils # 0.02 L (0.04-0.35) X 10*3/uL Carbon Dioxide 14.0 L (20.0-27.5) mmol/L BUN 8.0 L (9.0-27.0) mg/dL Creatinine 0.3 L (0.6-1.5) mg/dL BUN/Creatinine Ratio 26.67 H (12.00-20.00) Ratio Glucose 57 L (70-110) mg/dL Calcium 8.1 L (8.7-10.3) mg/dL Microbiology - Last 24 Hours (Table) 01/14/22 00:20 Gram Stain - Preliminary Abdomen Wound Culture - Preliminary 01/13/22 12:41 Blood Culture - Preliminary Blood No Growth after 24 hours 01/13/22 12:21 Blood Culture - Preliminary Blood No Growth after 24 hours Assessment and Plan Assessment: Assessment: #1 cellulitis of the abdomen #2 status post tummy tuck/liposuction Plan: -Admitted to medicine for close monitoring -Aspiration/fall precaution -pending final cultures. -Continue with antimicrobial as per infectious disease team. -Transvaginal ultrasound reviewed. Recommendations from general surgery review. Discussed case with patient regarding outpatient follow-up in obtaining medical records from [place]. -Surgical team on board -Pain control when necessary -DVT Px: Lovenox 40 daily.
[2022-01-15 10:14] LABS: African American GFR (CKD) 153.7 (60.0-200.0); Anion Gap 8.9 mmol/L (10.00-18.00); BUN/Creat Ratio 18.73 Ratio (12.00-20.00); Blood Urea Nitrogen 6.8 mg/dL (9.0-27.0); Calcium 8.4 mg/dL (8.7-10.3); Carbon Dioxide 20.4 mmol/L (20.0-27.5); Non-African American GFR(CKD) 132.6 (60.0-200.0); Potassium 4.2 mmol/L (3.5-5.5)
--- NOTE | 2022-01-15 12:13 | P.PN ---
Subjective Progress Note Date: 01/15/22 Principal diagnosis: Cellulitis of the anterior abdominal wall, previous abdominoplasty and postoperative sepsis, diabetes mellitus type 2, large septated pelvic cyst Patient seen and examined at bedside. Computed to doing to improve. Denies significant abdominal pain, no reported fever or chills. Tolerating diet, up to chair and ambulatory. Awaiting final culture results. Objective - Vital Signs Vital signs: Vital Signs Temp 98.3 F 01/15/22 07:30 Pulse 73 01/15/22 08:00 Resp 15 01/15/22 08:00 BP 108/71 01/15/22 07:30 Pulse Ox 100 01/15/22 07:30 Intake & Output 01/14/22 01/15/22 01/15/22 18:59 06:59 18:59 Intake Total 118 236 Balance 118 236 Intake: Oral 118 236 Other: # Voids 2 2 - Constitutional General appearance: Present: average body habitus, cooperative - EENT Eyes: Present: PERRLA - Respiratory Respiratory: bilateral: CTA - Cardiovascular Rhythm: regular - Gastrointestinal Gastrointestinal Comment(s): Abdomen is soft nontender palpation, no guarding rebound or distention. Cellulitis of left anterior abdominal wall nearly resolved, mild underlying induration no evidence of abscess. No pain out of proportion to exam. - Neurologic Neurologic: Present: CNII-XII intact - Musculoskeletal Musculoskeletal: Present: strength equal bilaterally - Psychiatric Psychiatric: Present: A&O x's 3, appropriate affect, intact judgment & insight - Labs CBC & Chem 7: 01/15/22 06:06 01/15/22 06:06 Labs: Abnormal Lab Results - Last 24 Hours (Table) 01/15/22 01/15/22 Range/Units 06:06 06:06 WBC 3.52 L (4.50-10.00) X 10*3/uL Hgb 11.3 L (12.0-15.0) g/dL MCH 24.6 L (27.0-32.0) pg MCHC 30.2 L (32.0-37.0) g/dL RDW 17.1 H (11.5-14.5) % Anion Gap 8.90 L (10.00-18.00) mmol/L BUN 6.8 L (9.0-27.0) mg/dL Creatinine 0.4 L (0.6-1.5) mg/dL Glucose 149 H (70-110) mg/dL Calcium 8.4 L (8.7-10.3) mg/dL Microbiology - Last 24 Hours (Table) 01/14/22 00:20 Gram Stain - Preliminary Abdomen Wound Culture - Preliminary 01/13/22 12:41 Blood Culture - Preliminary Blood No Growth after 24 hours 01/13/22 12:21 Blood Culture - Preliminary Blood No Growth after 24 hours Assessment and Plan Assessment: 41-year-old lady with what appear to be cellulitis of the superficial anterior abdominal wall of the left lower quadrant as demonstrated on physical exam and CT imaging in the setting of diabetes mellitus type 2 and recent colonoscopy and previous abdominoplasty complicated by infection and sepsis some 2 months ago. May relate a transient bacteremia in the setting of recent endoscopy in the setting of a relatively higher than average risk patient for infection. No discrete abscess seen, no clinical or radiographic signs of necrotizing fasciitis. Incidental, rather large 14 cm so septated left pelvic mass in the setting of multiple abdominal surgeries including hysterectomy and removal of one ovary, likely previous bowel resection, ostomy and reversal. May relate to gynecologic pathology, may relate to sequelae of intra-abdominal hematoma or lymphocele. Patient appears hemodynamically stable, no leukocytosis, no azotemia. Clinically improving on IV antibiotics. No objective signs of sepsis. Plan: Continue with present IV antibiotic regimen, infectious disease and medical notes reviewed and appreciated. Awaiting final culture results. Hepatic diet as tolerated, no plans for surgical interventions presently as there is no associated abscess. Would recommend outpatient follow-up with gynecology to get their perspective with respect to this pelvic mass or cyst. A follow-up ultrasound in 4-6 weeks would likely be reasonable. May follow up with the general surgeon of her choice or Dr. Humphrey or Dr. jacome in the office within 2 weeks of discharge. Ideally would like to get a hold of her previous scans from [place], I suspect that this mass is not new and has been present for some time given septations demonstrated on imaging. It has no findings on CT concerning for intra-abdominal abscess. We will follow. Time with Patient: Less than 30
[2022-01-15 14:50] VITALS: BP 103/65; PULSE 82; TEMP 98.1
--- NOTE | 2022-01-15 21:04 | P.PN ---
Subjective Progress Note Date: 01/15/22 Principal diagnosis: Abdominal wall cellulitis Patient is a 41-year-old female with recent abdominoplasty done in [place] in October 2021 with a postop infection requiring admission to the ICU presenting to the hospital with left lower abdominal wall swelling and redness with minimal drainage has been diagnosed with abdominal wall cellulitis abnormal CT and ultrasound suspicious for possible ovarian cyst. On today's evaluation that is 01/15/2022, the patient denies having any fever or any chills, the patient overall is feeling better, the left lower abdominal wall pain swelling redness has decreased in intensity and there is no drainage, the patient denies chest pain shortness of breath or cough no diarrhea Objective - Vital Signs Vital signs: Vital Signs Temp 98.3 F 01/15/22 07:30 Pulse 73 01/15/22 08:00 Resp 15 01/15/22 08:00 BP 108/71 01/15/22 07:30 Pulse Ox 100 01/15/22 07:30 Intake & Output 01/14/22 01/15/22 01/15/22 18:59 06:59 18:59 Intake Total 118 236 Balance 118 236 Intake: Oral 118 236 Other: # Voids 2 2 - Exam GENERAL DESCRIPTION: A middle-aged female lying in bed in no distress RESPIRATORY SYSTEM: Unlabored breathing , decreased breath sounds at bases HEART: S1 S2 regular rate and rhythm , ABDOMEN: Soft , left lower abdominal wall swelling and redness is slightly decreased, minimal drainage EXTREMITIES: No edema feet - Labs CBC & Chem 7: 01/15/22 06:06 01/15/22 06:06 Labs: Abnormal Lab Results - Last 24 Hours (Table) 01/15/22 01/15/22 Range/Units 06:06 06:06 WBC 3.52 L (4.50-10.00) X 10*3/uL Hgb 11.3 L (12.0-15.0) g/dL MCH 24.6 L (27.0-32.0) pg MCHC 30.2 L (32.0-37.0) g/dL RDW 17.1 H (11.5-14.5) % Anion Gap 8.90 L (10.00-18.00) mmol/L BUN 6.8 L (9.0-27.0) mg/dL Creatinine 0.4 L (0.6-1.5) mg/dL Glucose 149 H (70-110) mg/dL Calcium 8.4 L (8.7-10.3) mg/dL Microbiology - Last 24 Hours (Table) 01/14/22 00:20 Gram Stain - Preliminary Abdomen Wound Culture - Preliminary 01/13/22 12:41 Blood Culture - Preliminary Blood No Growth after 24 hours 01/13/22 12:21 Blood Culture - Preliminary Blood No Growth after 24 hours Assessment and Plan (1) Abdominal wall cellulitis Status: Acute Code(s): L03.311 - CELLULITIS OF ABDOMINAL WALL SNOMED Code(s): 97361052 Plan: Patient with abdominal wall cellulitis with a recent abdominoplasty and a complicated postoperative course CT abdominal pelvis did not show any drainable abscess, cultures are pending, the patient seemed to have clinically responded daptomycin which will be continued while waiting for the cultures to finalize to determine her discharge antibiotics Time with Patient: Less than 30
--- NOTE | 2022-01-16 09:18 | P.DS ---
<Aditya Martino - Last Filed: 01/16/22 09:06> Providers Expected date of discharge: 01/15/22 Hospital Course: THIS IS NOT A DISCHARGE SUMMARY BUT A SUMMARY OF CARE PATIENT LEFT AGAINST MEDICAL ADVICE Diagnoses throughout hospitalization: Abdominal wall cellulitis Cystic pelvic mass Hospital Course: Patient is a 41-year-old female with a past medical history of tummy tuck/liposuction on October 31 in [place] which resulted in the development of significant cellulitis of abdominal wall followed by 2 week admission in the ICU in [place] where she underwent treatment for sepsis and IV antibiotics. Patient presented to our facility on 01/13/22 with a chief complaint of recurrent redness, firmness, and pain/discomfort to postsurgical site of the lower abdomen. Patient was started on IV Unasyn secondary to her ALLERGY to vancomycin. She underwent an abdominal and pelvic CT which revealed findings consistent with abdominal wall cellulitis with lymphocyte or mesenteric cyst or possibly ovarian cystic mass. A pelvic transvaginal ultrasound was then completed confirming a cystic mass within the pelvis. General surgery and infectious disease were both consulted and evaluated patient. Blood cultures and wound cultures were obtained. It appears patient left AMA on 01/15/22 at 6:11 PM. RN documented the patient was advised of risks of leaving AMA including worsening infection and and per documentation patient was understanding of risks and signed paperwork leaving facility. Patient Condition at Discharge: Undetermined Plan - Discharge Summary New Discharge Prescriptions: No Action traMADol HCL [Ultram] 50 mg PO Q8HR PRN PRN Reason: Pain Dapagliflozin Propanediol [Farxiga] 10 mg PO QAM Discharge Medication List Dapagliflozin Propanediol [Farxiga] 10 mg PO QAM 01/06/22 [History] traMADol HCL [Ultram] 50 mg PO Q8HR PRN 01/06/22 [History] Follow up Appointment(s)/Referral(s): John Newton MD [Primary Care Provider] - 1-2 days Discharge Disposition: Left Against Medical Advice <Yuliana Arora - Last Filed: 01/16/22 18:12> Providers Date of admission: 01/13/22 15:16 Attending physician: Anshu Ivan MD Consults: 01/13/22 15:18 Consult Physician Urgent Consulting Provider: Elijah Rojas Consult Reason/Comments: abd wall cellulitis, s/p abdominoplasty Do you want consulting provider notified?: Yes Consult Physician Urgent Consulting Provider: Jordana Jeffries Consult Reason/Comments: abd wall cellulitis, s/p abdominoplasty Do you want consulting provider notified?: Yes Primary care physician: John Newton MD Hospital Course: Aditya Martino NP reviewed the findings and plan as documented in the note above. I did not physically speak with or examine the patient on this date.
== END 2022-01-15 19:47 | disposition left against medical advice (07) ==
LOC: EC 11:13 → 6NMEDSUR 15:16
PROVIDERS: ADMIT Internal Medicine; ATTEND Internal Medicine
DX: L03.311 Cellulitis of abdominal wall (principal); Z53.29 Procedure and treatment not carried out because of patient's decision for other reasons; R19.04 Left lower quadrant abdominal swelling, mass and lump; E11.9 Type 2 diabetes mellitus without complications; R11.2 Nausea with vomiting, unspecified; Z88.1 Allergy status to other antibiotic agents; Z87.891 Personal history of nicotine dependence; Z90.49 Acquired absence of other specified parts of digestive tract; Z90.710 Acquired absence of both cervix and uterus; Z90.721 Acquired absence of ovaries, unilateral; Z79.84 Long term (current) use of oral hypoglycemic drugs; Z98.890 Other specified postprocedural states
CPT/HCPCS: 96376; 96361 ×3; 96366; 96367; 96365; 96375; 99285; 36415; 80053; 80048 ×2; 83605; 85025 ×2; 85027; 87040; 87070; 87205; 93976; 76856; 76830; 74177; G0378 ×3; J2270 ×2; J2405; J0878; J0295; Q9967

== ENCOUNTER → 2022-12-11 | Outpatient (CLI) | payer BC ==
--- NOTE | 2022-12-11 09:42 | CT ---
EXAMINATION TYPE: CT brain wo con CT DLP: 1054.2 mGycm, Automated exposure control for dose reduction was used. DATE OF EXAM: 12/11/2022 9:36 AM COMPARISON: None. CLINICAL INDICATION:Female, 42 years old with history of R51.9 Headache, unspecified, headache TECHNIQUE: Brain: Multiple axial CT images of the brain were obtained without IV contrast. Coronal and sagittal reformats reviewed. FINDINGS: Brain: Extra-axial spaces: No abnormal extra-axial fluid collections. Ventricular system: Within normal limits Cerebral parenchyma: No acute intraparenchymal hemorrhage or mass effect. The joyner-white junction is well differentiated. Cerebellum: Unremarkable. Mass effect: No evidence of midline shift. Intracranial vasculature: unremarkable Soft tissues: Normal. Calvarium/osseous structures: No depressed skull fracture. Paranasal sinuses and mastoid air cells: Clear Visualized orbits: Orbital contents are intact. IMPRESSION: No acute intracranial process.
== END | disposition home or self-care (01) ==
LOC: RADCTMAIN 09:19
PROVIDERS: ATTEND Family Medicine
DX: R51.9 Headache, unspecified (principal)
CPT/HCPCS: 70450

== ENCOUNTER → 2024-01-28 | Outpatient (CLI) | payer BC ==
--- NOTE | 2024-01-29 15:01 | MM ---
Reason for Exam: Screening (asymptomatic). Last screening mammogram was performed 12 month(s) ago. Patient History: Menarche at age 8. First Full-Term at age 20. Left ovary removed at age 37. Hysterectomy at age 37. Risk Values: Kylie 5 year model risk: 0.8%. NCI Lifetime model risk: 9.5%. Prior Study Comparison: 10/13/2020 Bilateral Screening Mammogram, [facility]. 01/10/2022 Bilateral Screening Mammogram, [facility]. 01/22/2023 Bilateral MG 3D screening mammo w/cad, [facility]. Tissue Density: The breasts are heterogeneously dense, which may obscure small masses. Findings: Analyzed By CAD. There is no suspicious group of microcalcifications or new suspicious mass. Overall Assessment: Negative, BI-RAD 1 Management: Screening Mammogram of both breasts in [address] [facility] will attempt to contact patient to return for supplemental views and ultrasound if indicated. Patient should continue monthly self-breast exams. A clinical breast exam by your physician is recommended on an annual basis. This exam should not preclude additional follow-up of suspicious palpable abnormalities. Note on Kylie scores and lifetime risk: 1. A Kylie score greater than 3% is considered moderate risk. If this is the case, consider specialist referral to assess eligibility for a risk reducing agent. 2. If overall lifetime risk for the development of breast cancer is 20% or higher, the patient may qualify for future screening with alternating mammogram and breast MRI. Electronically signed and approved by: Elijah Barrera DO
== END | disposition home or self-care (01) ==
LOC: RADMAMWWP 07:31
PROVIDERS: ATTEND Family Medicine
DX: Z12.31 Encounter for screening mammogram for malignant neoplasm of breast (principal)
CPT/HCPCS: 77063; 77067

== ENCOUNTER 2024-06-01 01:02 | Emergency (ER) | payer BC ==
[2024-06-01 01:09] VITALS: RESP 18; TEMP 98
--- NOTE | 2024-06-01 01:49 | ED ---
General Adult HPI - General Chief complaint: Abdominal Pain Stated complaint: ABD Pain Time Seen by Provider: 06/01/24 01:10 Source: patient, family, RN notes reviewed Mode of arrival: wheelchair Limitations: no limitations - History of Present Illness Initial comments: 43-year-old female with past medical history significant for diabetes presents to the emergency department for evaluation of lower abdominal pain. Patient states that this started around 3 weeks ago but today has been significantly worse. She notes that the pain is worse with rest. She reports a history of multiple abdominal surgeries in the past. She has had a colostomy which has since been reversed. She states she has not experienced pain like this before. She admits to chills. Denies nausea, vomiting. Reports normal bowel movements and urinary habits. - Related Data Home Medications Medication Instructions Recorded Confirmed Dapagliflozin Propanediol [Farxiga] 10 mg PO QAM 01/06/22 01/13/22 traMADol HCL [Ultram] 50 mg PO Q8HR PRN 01/06/22 01/13/22 Allergies Allergy/AdvReac Type Severity Reaction Status Date / Time vancomycin Allergy Anaphylaxis Verified 06/01/24 01:08 Review of Systems ROS Statement: Those systems with pertinent positive or pertinent negative responses have been documented in the HPI. ROS Other: All systems not noted in ROS Statement are negative. Past Medical History Past Medical History: Diabetes Mellitus Additional Past Medical History / Comment(s): low blood pressure, History of Any Multi-Drug Resistant Organisms: None Reported Past Surgical History: Cholecystectomy, Hysterectomy Additional Past Surgical History / Comment(s): cyst on tail bone removed, "tummy tuck"-Oct 2021 in [place] Past Anesthesia/Blood Transfusion Reactions: Postoperative Nausea & Vomiting (PONV) Additional Past Anesthesia/Blood Transfusion Reaction / Comment(s): ICU For 2 weeks with blood infections after one surgery Oct 2021(In [place]) Past Psychological History: No Psychological Hx Reported Smoking Status: Former smoker Past Alcohol Use History: None Reported Past Drug Use History: None Reported - Past Family History Mother Family Medical History: No Reported History General Exam Limitations: no limitations General appearance: alert, in no apparent distress Head exam: Present: atraumatic, normocephalic, normal inspection Eye exam: Present: normal appearance, PERRL, EOMI. Absent: scleral icterus, conjunctival injection, periorbital swelling ENT exam: Present: normal exam, mucous membranes moist Neck exam: Present: normal inspection. Absent: tenderness, meningismus, lymphadenopathy Respiratory exam: Present: normal lung sounds bilaterally. Absent: respiratory distress, wheezes, rales, rhonchi, stridor Cardiovascular Exam: Present: regular rate, normal rhythm, normal heart sounds. Absent: systolic murmur, diastolic murmur, rubs, gallop, clicks GI/Abdominal exam: Present: soft, tenderness (lower abdominal), guarding, normal bowel sounds. Absent: distended, rebound, rigid Extremities exam: Present: normal inspection, full ROM, normal capillary refill. Absent: tenderness, pedal edema, joint swelling, calf tenderness Back exam: Present: normal inspection Neurological exam: Present: alert, oriented X3 Psychiatric exam: Present: normal affect, normal mood Skin exam: Present: warm, dry, intact, normal color. Absent: rash Course Vital Signs 06/01/24 06/01/24 06/01/24 01:07 02:27 03:00 Temperature 98 F Pulse Rate 80 82 73 Respiratory 18 18 18 Rate Blood Pressure 146/76 121/81 109/65 O2 Sat by Pulse 100 99 97 Oximetry 06/01/24 04:00 Temperature Pulse Rate 70 Respiratory 18 Rate Blood Pressure 105/70 O2 Sat by Pulse 100 Oximetry Medical Decision Making - Medical Decision Making Was pt. sent in by a medical professional or institution ([facility], [facility], urgent care, hospital, or shelter...) When possible be specific @ -No Did you speak to anyone other than the patient for history (EMS, parent, family, police, friend...)? What history was obtained from this source @ -Patients provided some of the history for this patient. Did you review nursing and triage notes (agree or disagree)? Why? @ -I reviewed and agree with nursing and triage notes Were old charts reviewed (outside hosp., previous admission, EMS record, old EKG, old radiological studies, urgent care reports/EKG's, shelter records)? Report findings @ -No old charts were reviewed Differential Diagnosis (chest pain, altered mental status, abdominal pain women, abdominal pain men, vaginal bleeding, weakness, fever, dyspnea, syncope, headache, dizziness, GI bleed, back pain, seizure, CVA, palpatations, mental health, musculoskeletal)? @ -Differential Abdominal Pain Women: Appendicitis, Cholecystitis, diverticulosis, ischemic bowel, pancreatitis, hepatitis, UTI, gastroenteritis, AAA, incarcerated hernia, bowel obstruction, constipation, inflammatory bowel, hepatitis, peptic ulcer disease, splenic infarction, perforated viscus, vulvitis, ovarian torsion, PID, kidney stone, placenta abruption, this is not meant to be an all-inclusive list EKG interpreted by me (3pts min.). @ -None X-rays interpreted by me (1pt min.). @ -None done CT interpreted by me (1pt min.). @ -CT abdomen pelvis shows nonspecific cystic lesion of the left anterior pelvis U/S interpreted by me (1pt. min.). @ -None done What testing was considered but not performed or refused? (CT, X-rays, U/S, labs)? Why? @ -None What meds were considered but not given or refused? Why? @ -None Did you discuss the management of the patient with other professionals (professionals i.e. , PA, C[employer] TE[employer], lab, RT, psych nurse, home health care social worker, director medical writing, teacher, juvenile justice officer, porter sample case)? Give summary @ -No Was smoking cessation discussed for >3mins.? @ -No Was critical care preformed (if so, how long)? @ -No Were there social determinants of health that impacted care today? How? (Homelessness, low income, unemployed, alcoholism, drug addiction, transport ation, low edu. Level, literacy, decrease access to med. care, assisted, rehab)? @ -No Was there de-escalation of care discussed even if they declined (Discuss DNR or withdrawal of care, Hospice)? DNR status @ -No What co-morbidities impacted this encounter? (DM, HTN, Smoking, COPD, CAD, Cancer, CVA, ARF, Chemo, Hep., AIDS, mental health diagnosis, sleep apnea, morbid obesity)? @ -None Was patient admitted / discharged? Hospital course, mention meds given and route, prescriptions, significant lab abnormalities, going to OR and other pertinent info. @ -Patient presented to the emergency department for evaluation of lower abdominal pain worsening tonight. Labs obtained. There is no significant leukocytosis, creatinine, LFTs within normal limits. UA shows no evidence of infectious process. Patient provided medication for pain and nausea control along with IV fluids. Patient underwent CT scan. CT abdomen pelvis shows nonspecific cystic lesion of the left anterior pelvis. Patient was advised on findings. Symptoms improved. Patient will be discharged home with follow-up advised to her PCP. She is understanding agreeable plan. Patient stable at time of discharge. Case discussed with Dr. Castillo Undiagnosed new problem with uncertain prognosis? @ -No Drug Therapy requiring intensive monitoring for toxicity (Heparin, Nitro, Insulin, Cardizem)? @ -No Were any procedures done? @ -No Diagnosis/symptom? @ -Abdominal pain Acute, or Chronic, or Acute on Chronic? @ -acute Uncomplicated (without systemic symptoms) or Complicated (systemic symptoms)? @ -uncomplicated Side effects of treatment? @ -No Exacerbation, Progression, or Severe Exacerbation? @ -No Poses a threat to life or bodily function? How? (Chest pain, [place], [place], pneumonia, PE, COPD, DKA, ARF, appy, cholecystitis, CVA, Diverticulitis, Homicidal, Suicidal, threat to staff... and all critical care pts) @ -No - Lab Data Result diagrams: 06/01/24 01:48 06/01/24 01:48 Lab Results 06/01/24 06/01/24 06/01/24 Range/Units 01:48 01:48 01:48 WBC 6.6 (3.8-10.6) k/uL RBC 5.43 H (3.80-5.40) m/uL Hgb 15.6 (11.4-16.0) gm/dL Hct 47.1 H (34.0-46.0) % MCV 86.7 (80.0-100.0) fL MCH 28.7 (25.0-35.0) pg MCHC 33.1 (31.0-37.0) g/dL RDW 14.1 (11.5-15.5) % Plt Count 234 (150-450) k/uL MPV 9.4 Neutrophils % 64 % Lymphocytes % 27 % Monocytes % 5 % Eosinophils % 3 % Basophils % 0 % Neutrophils # 4.2 (1.3-7.7) k/uL Lymphocytes # 1.8 (1.0-4.8) k/uL Monocytes # 0.3 (0-1.0) k/uL Eosinophils # 0.2 (0-0.7) k/uL Basophils # 0.0 (0-0.2) k/uL Sodium 137 (137-145) mmol/L Potassium 4.2 (3.5-5.1) mmol/L Chloride 104 (98-107) mmol/L Carbon Dioxide 23 (22-30) mmol/L Anion Gap 10 mmol/L BUN 11 (7-17) mg/dL Creatinine 0.30 L (0.52-1.04) mg/dL Est GFR (CKD-EPI)AfAm >90 (>60 ml/min/1.73 sqM) Est GFR (CKD-EPI)NonAf >90 (>60 ml/min/1.73 sqM) Glucose 139 H (74-99) mg/dL Plasma Lactic Acid Bernardino (0.7-2.0) mmol/L Calcium 10.0 (8.4-10.2) mg/dL Total Bilirubin 0.8 (0.2-1.3) mg/dL AST 31 (14-36) U/L ALT 34 (4-34) U/L Alkaline Phosphatase 77 (38-126) U/L Total Protein 8.0 (6.3-8.2) g/dL Albumin 4.8 (3.5-5.0) g/dL Amylase 58 (30-110) U/L Lipase 201 (23-300) U/L Urine Color Colorless Urine Appearance Clear (Clear) Urine pH 5.5 (5.0-8.0) Ur Specific [place] 1.034 (1.001-1.035) Urine Protein Negative (Negative) Urine Glucose (UA) 4+ H (Negative) Urine Ketones 1+ H (Negative) Urine Blood Negative (Negative) Urine Nitrite Negative (Negative) Urine Bilirubin Negative (Negative) Urine Urobilinogen <2.0 (<2.0) mg/dL Ur Leukocyte Esterase Negative (Negative) Urine HCG, Qual (Not Detectd) 06/01/24 06/01/24 Range/Units 01:48 01:48 WBC (3.8-10.6) k/uL RBC (3.80-5.40) m/uL Hgb (11.4-16.0) gm/dL Hct (34.0-46.0) % MCV (80.0-100.0) fL MCH (25.0-35.0) pg MCHC (31.0-37.0) g/dL RDW (11.5-15.5) % Plt Count (150-450) k/uL MPV Neutrophils % % Lymphocytes % % Monocytes % % Eosinophils % % Basophils % % Neutrophils # (1.3-7.7) k/uL Lymphocytes # (1.0-4.8) k/uL Monocytes # (0-1.0) k/uL Eosinophils # (0-0.7) k/uL Basophils # (0-0.2) k/uL Sodium (137-145) mmol/L Potassium (3.5-5.1) mmol/L Chloride (98-107) mmol/L Carbon Dioxide (22-30) mmol/L Anion Gap mmol/L BUN (7-17) mg/dL Creatinine (0.52-1.04) mg/dL Est GFR (CKD-EPI)AfAm (>60 ml/min/1.73 sqM) Est GFR (CKD-EPI)NonAf (>60 ml/min/1.73 sqM) Glucose (74-99) mg/dL Plasma Lactic Acid Bernardino 1.1 (0.7-2.0) mmol/L Calcium (8.4-10.2) mg/dL Total Bilirubin (0.2-1.3) mg/dL AST (14-36) U/L ALT (4-34) U/L Alkaline Phosphatase (38-126) U/L Total Protein (6.3-8.2) g/dL Albumin (3.5-5.0) g/dL Amylase (30-110) U/L Lipase (23-300) U/L Urine Color Urine Appearance (Clear) Urine pH (5.0-8.0) Ur Specific [place] (1.001-1.035) Urine Protein (Negative) Urine Glucose (UA) (Negative) Urine Ketones (Negative) Urine Blood (Negative) Urine Nitrite (Negative) Urine Bilirubin (Negative) Urine Urobilinogen (<2.0) mg/dL Ur Leukocyte Esterase (Negative) Urine HCG, Qual Not Detected (Not Detectd) Disposition Clinical Impression: Abdominal pain Disposition: HOME SELF-CARE Condition: Stable Instructions (If sedation given, give patient instructions): Abdominal Pain (ED) Additional Instructions: Please follow up with your primary care provider. Return to the emergency department for new or worsening symptoms. Is patient prescribed a controlled substance at d/c from ED?: No Referrals: Oscar Caro DO [Primary Care Provider] - 1-2 days
[2024-06-01 02:08] LABS: Basophils % (A) 0 %; Eosinophils # (A) 0.2 k/uL (0-0.7); Eosinophils % (A) 3 %; HCT 47.1 % (34.0-46.0); HGB 15.6 gm/dL (11.4-16.0); Lymphocytes # (A) 1.8 k/uL (1.0-4.8); Lymphocytes % (A) 27 %; MCH 28.7 pg (25.0-35.0); MCHC 33.1 g/dL (31.0-37.0); MCV 86.7 fL (80.0-100.0); Mean Platelet Volume 9.4; Monocytes # (A) 0.3 k/uL (0-1.0); Monocytes % (A) 5 %; Neutrophils # (A) 4.2 k/uL (1.3-7.7); Neutrophils % (A) 64 %; Platelet Count 234 k/uL (150-450); RBC 5.43 m/uL (3.80-5.40); RDW 14.1 % (11.5-15.5); WBC 6.6 k/uL (3.8-10.6)
[2024-06-01 02:18] LABS: ALT 34 U/L (4-34); AST 31 U/L (14-36); African American GFR (CKD) >90 (>60 ml/min/1.73 sqM); Albumin 4.8 g/dL (3.5-5.0); Alkaline Phosphatase 77 U/L (38-126); Amylase 58 U/L (30-110); Anion Gap 10 mmol/L; Blood Urea Nitrogen 11 mg/dL (7-17); Carbon Dioxide 23 mmol/L (22-30); Chloride 104 mmol/L (98-107); Glucose 139 mg/dL (74-99); Lipase 201 U/L (23-300); Non-African American GFR(CKD) >90 (>60 ml/min/1.73 sqM); Potassium 4.2 mmol/L (3.5-5.1); Sodium 137 mmol/L (137-145); Total Bilirubin 0.8 mg/dL (0.2-1.3)
[2024-06-01] MEDS: KETOROLAC 15 MG/ML 1 ML VIAL IVP STA (02:20)
[2024-06-01] MEDS: ONDANSETRON 4 MG/2 ML VIAL IVP STA (02:27)
[2024-06-01] MEDS: HYDROmorphone 0.5 MG/0.5 ML SYRINGE IVP STA (02:30)
[2024-06-01 02:39] LABS: Appearance,Urine Clear (Clear); Bilirubin,Urine Negative (Negative); Blood,Urine Negative (Negative); Color,Urine Colorless; Glucose,Urine (UA) 4+ (Negative); Ketones,Urine 1+ (Negative); Leukocyte Esterase,Urine Negative (Negative); Nitrite,Urine Negative (Negative); PH, Urine 5.5 (5.0-8.0); Protein,Urine Negative (Negative); Specific Gravity,Urine 1.034 (1.001-1.035); Urobilinogen,Urine <2.0 mg/dL (<2.0)
--- NOTE | 2024-06-01 03:40 | CT ---
EXAM: CT Abdomen and Pelvis With Intravenous Contrast CLINICAL HISTORY: Left lower abdominal pain. Hx of cholecystectomy and hysterectomy. ISO 300 100ml TECHNIQUE: Axial computed tomography images of the abdomen and pelvis with intravenous contrast. CTDI is 113.7 mGy and DLP is 640.4 mGy-cm. This CT exam was performed using one or more of the following dose reduction techniques: automated exposure control, adjustment of the mA and/or kV according to patient size, and/or use of iterative reconstruction technique. Coronal and sagittal reformatted images were created and reviewed. 407 images COMPARISON: 01/13/2022 FINDINGS: Lung bases: Unremarkable. No mass. No consolidation. ABDOMEN: Liver: Unremarkable. No mass. Gallbladder and bile ducts: Cholecystectomy clips. No ductal dilation. Pancreas: Unremarkable. No mass. No ductal dilation. Spleen: Unremarkable. No splenomegaly. Adrenals: Unremarkable. No mass. 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 No hydronephrosis. Stomach and bowel: 16 x 20 mm hyperdense cystic lesion of left anterior pelvis measuring about 45 HU on series 201 image 67, adjacent to the cluster of surgical clips is nonspecific. No obstruction. No mucosal thickening. PELVIS: Appendix: Normal appendix. Bladder: Unremarkable. No mass. Reproductive: Likely 2.3 cm right ovarian cyst. Uterus and ovaries are absent. Subperitoneal space: Persistent presacral stranding is nonspecific may represent scarring. ABDOMEN and PELVIS: Intraperitoneal space: Unremarkable. No free air. No significant fluid collection. Bones/joints: Moderate lower lumbar sclerosis convex to the right. Soft tissues: Clustered surgical clips of left pelvis. Suspect liposuction scars. Please correlate with surgical history. Vasculature: Unremarkable. No abdominal aortic aneurysm. Lymph nodes: Unremarkable. No enlarged lymph nodes. IMPRESSION: 1. 16 x 20 mm hyperdense cystic lesion of left anterior pelvis is nonspecific. Differential includes hemorrhagic ovarian cyst, endometrioma, paraovarian cyst, mesenteric cyst, peritoneal inclusion cyst, duplication cyst, neoplastic etiologies, seroma/scarring given its proximity to cluster of surgical clips. 2. Likely 2.3 cm right ovarian cyst.
[2024-06-01 04:15] VITALS: BP 105/70; PULSE 70
== END 2024-06-01 04:10 | disposition home or self-care (01) ==
LOC: EC 01:02
DX: N83.201 Unspecified ovarian cyst, right side (principal); Z88.8 Allergy status to other drugs, medicaments and biological substances; Z87.891 Personal history of nicotine dependence
CPT/HCPCS: 36415; 80053; 82150; 83605; 83690; 85025; 81003; 81025; 74177; 99284; 96374; 96375 ×2; J2405; J1885; J1170; Q9967

== ENCOUNTER → 2024-07-14 | Outpatient (CLI) | payer BC ==
[2024-07-14 11:22] LABS: African American GFR (CKD) >90 (>60 ml/min/1.73 sqM); Blood Urea Nitrogen 13 mg/dL (7-17); Non-African American GFR(CKD) >90 (>60 ml/min/1.73 sqM)
--- NOTE | 2024-07-14 13:06 | CT ---
EXAMINATION TYPE: CT abdomen pelvis w con DATE OF EXAM: 07/14/2024 COMPARISON: 06/01/2024 HISTORY: abd pain, ovarian cyst left side CT DLP: 524.5 mGycm Automated exposure control for dose reduction was used. CONTRAST: CT scan of the abdomen pelvis is performed with IV Contrast, patient injected with 100 mL of Isovue 3 00. FINDINGS- LUNG BASES- No significant abnormality is appreciated. Previous breast implant surgery. LIVER/GB- postcholecystectomy changes. PANCREAS- No gross abnormality is seen. SPLEEN- spleen measures at the upper limits of normal 12.5 cm. ADRENALS- No gross abnormality is seen. KIDNEYS/BLADDER-no hydronephrosis or nephrolithiasis. Benign-appearing lipoma or angiomyolipoma upper pole right kidney. BOWEL- nonspecific LYMPH NODES- No greater than 1cm abdominal or pelvic lymph nodes are appreciated. Surgical clips in the retroperitoneum. OSSEOUS STRUCTURES- No significant abnormality is seen. OTHER- within the pelvis there is presacral soft tissue thickening. This is stable. Within the right adnexa there is a complex cystic lesion may represent multiple tiny follicles or cysts one of which is hyperdense. This appears similar to prior exam with mild interval reduction in size of the largest cyst. Within the left anterior abdomen there are surgical clips and a soft tissue mass or density. Measures 6 cm and stable. Could be related to underlying ectopic endometrial tissue. Neoplasm not excluded. IMPRESSION- 1. There is a 6 cm soft tissue density in the left anterior pelvis opposed to the lower anterior abdo blu wall adjacent to surgical clips of uncertain etiology. Finding increased in size from prior exa m. Patient appears post hysterectomy and reported history of left oophorectomy. Differential diagnosi s would include a mass, ectopic endometrial tissue. Recommend MRI correlation. 2. Right ovarian cyst is slightly reduced in size relative to prior exam. 3. Stable nonspecific presacral soft tissue thickening.
== END | disposition home or self-care (01) ==
LOC: RADCTMAIN 10:39
PROVIDERS: ATTEND Family Medicine
DX: N83.202 Unspecified ovarian cyst, left side
CPT/HCPCS: 36415; 74177; 82565; 84520

== ENCOUNTER 2025-04-27 09:53 | Emergency (ER) | payer BC ==
--- NOTE | 2025-04-27 10:52 | ED ---
Abdominal Pain HPI - General Chief Complaint: Abdominal Pain Stated Complaint: Diarrhea Time Seen by Provider: 04/27/25 10:10 Source: patient, family, EMS, RN notes reviewed Mode of arrival: EMS Limitations: no limitations - History of Present Illness Initial Comments: This is a 44-year-old female with history of DM, bowel perforation, cholecy stectomy and hysterectomy presenting via EMS with for diffuse abdominal pain (9/10) starting last night. Patient states that she has been having loose stool for the past several days, with subsequent use of Imodium that has now caused constipation for her. Patient states pain is sharp and intermittent but does not localize. Denies associated fever, chills, hematemesis, hematochezia, melena. Denies recent travel, consumption of undercooked food, recent antibiotic use, recent hospitalization. Denies dizziness, chest pain, dyspnea, urinary symptoms. MD Complaint: abdominal pain Onset/Timin -: days(s) Location: diffuse Severity scale (1-10): 9 Consistency: intermittent Associated Symptoms: nausea, vomiting, diarrhea, constipation - Related Data Home Medications Medication Instructions Recorded Confirmed Dapagliflozin Propanediol [Farxiga] 10 mg PO QAM 01/06/22 01/13/22 traMADol HCL [Ultram] 50 mg PO Q8HR PRN 01/06/22 01/13/22 Previous Rx's Medication Instructions Recorded Ondansetron Odt [Zofran Odt] 4 mg PO Q8HR PRN #10 tab 04/27/25 Allergies Allergy/AdvReac Type Severity Reaction Status Date / Time vancomycin Allergy Anaphylaxis Verified 06/01/24 01:08 Review of Systems ROS Statement: Those systems with pertinent positive or pertinent negative responses have been documented in the HPI. ROS Other: All systems not noted in ROS Statement are negative. Past Medical History Past Medical History: Diabetes Mellitus Additional Past Medical History / Comment(s): low blood pressure, History of Any Multi-Drug Resistant Organisms: None Reported Past Surgical History: Cholecystectomy, Hysterectomy Additional Past Surgical History / Comment(s): cyst on tail bone removed, "tummy tuck"-Oct 2021 in [place] Past Anesthesia/Blood Transfusion Reactions: Postoperative Nausea & Vomiting (PONV) Additional Past Anesthesia/Blood Transfusion Reaction / Comment(s): ICU For 2 weeks with blood infections after one surgery Oct 2021(In [place]) Past Psychological History: No Psychological Hx Reported Smoking Status: Former smoker Past Alcohol Use History: None Reported Past Drug Use History: None Reported - Past Family History Mother Family Medical History: No Reported History General Exam Limitations: no limitations General appearance: alert, in distress Head exam: Present: atraumatic, normocephalic, normal inspection Eye exam: Present: normal appearance, PERRL, EOMI. Absent: scleral icterus, conjunctival injection, periorbital swelling ENT exam: Present: normal exam, mucous membranes dry Neck exam: Present: normal inspection. Absent: tenderness, meningismus, lymphadenopathy Respiratory exam: Present: normal lung sounds bilaterally. Absent: respiratory distress, wheezes, rales, rhonchi, stridor, accessory muscle use, decreased breath sounds, prolonged expiratory Cardiovascular Exam: Present: regular rate, normal rhythm, normal heart sounds. Absent: systolic murmur, diastolic murmur, rubs, gallop, clicks GI/Abdominal exam: Present: soft, distended, tenderness (diffuse with tympaic tenderness), rebound, hyperactive bowel sounds (high-pitched BS). Absent: guarding, rigid, pulsatile mass, hernia Extremities exam: Present: normal inspection, full ROM, normal capillary refill, other (BLE dorsalis pedis pulse +2). Absent: tenderness, pedal edema, joint swelling, calf tenderness Back exam: Present: normal inspection Neurological exam: Present: alert, oriented X3, CN II-XII intact Psychiatric exam: Present: normal affect, normal mood Skin exam: Present: warm, dry, intact, normal color. Absent: rash Course Vital Signs 04/27/25 04/27/25 04/27/25 10:02 12:02 12:48 Temperature 98.5 F 97.6 F Pulse Rate 103 H 91 101 H Respiratory 16 16 20 Rate Blood Pressure 103/70 124/74 118/77 O2 Sat by Pulse 99 100 95 Oximetry 04/27/25 04/27/25 14:29 14:32 Temperature 97.5 F L Pulse Rate 93 Respiratory 16 Rate Blood Pressure 106/74 O2 Sat by Pulse 100 Oximetry Medical Decision Making - Medical Decision Making Was pt. sent in by a medical professional or institution (, PA, SECURITY SYSTEM ENGINEER, urgent care, hospital, or custodial...) When possible be specific @ -No Did you speak to anyone other than the patient for history (EMS, parent, family, police, friend...)? What history was obtained from this source @ - provided small portion of HPI Did you review nursing and triage notes (agree or disagree)? Why? @ -I reviewed and agree with nursing and triage notes Were old charts reviewed (outside hosp., previous admission, EMS record, old EKG, old radiological studies, urgent care reports/EKG's, custodial records)? Report findings @ -No old charts were reviewed Differential Diagnosis (chest pain, altered mental status, abdominal pain women, abdominal pain men, vaginal bleeding, weakness, fever, dyspnea, syncope, headache, dizziness, GI bleed, back pain, seizure, CVA, palpatations, mental health, musculoskeletal)? @ -Differential Abdominal Pain Women: Appendicitis, Cholecystitis, diverticulosis, ischemic bowel, pancreatitis, hepatitis, UTI, gastroenteritis, AAA, incarcerated hernia, bowel obstruction, constipation, inflammatory bowel, hepatitis, peptic ulcer disease, splenic infarction, perforated viscus, vulvitis, ovarian torsion, PID, kidney stone, placenta abruption, this is not meant to be an all-inclusive list EKG interpreted by me (3pts min.). @ -Not done X-rays interpreted by me (1pt min.). @ -None done CT interpreted by me (1pt min.). @ -AP CT shows soft tissue within left anterior pelvis and nonspecific presacral soft tissue thickening. No other acute abnormalities noted. U/S interpreted by me (1pt. min.). @ -None done What testing was considered but not performed or refused? (CT, X-rays, U/S, labs)? Why? @ -None What meds were considered but not given or refused? Why? @ -None Did you discuss the management of the patient with other professionals (professionals i.e. , PA, SECURITY SYSTEM ENGINEER, lab, RT, psych nurse, social service liaison, slasher, teacher, program officer, adult protective caseworker)? Give summary @ -No Was smoking cessation discussed for >3mins.? @ -No Was critical care preformed (if so, how long)? @ -No Were there social determinants of health that impacted care today? How? (Homelessness, low income, unemployed, alcoholism, drug addiction, transportation, low edu. Level, literacy, decrease access to med. care, group home, rehab)? @ -No Was there de-escalation of care discussed even if they declined (Discuss DNR or withdrawal of care, Hospice)? DNR status @ -No What co-morbidities impacted this encounter? (DM, HTN, Smoking, COPD, CAD, Cancer, CVA, ARF, Chemo, Hep., AIDS, mental health diagnosis, sleep apnea, morbid obesity)? @ -None Was patient admitted / discharged? Hospital course, mention meds given and route, prescriptions, significant lab abnormalities, going to OR and other pertinent info. @ -Patient initially provided IV normal saline and Dilaudid for pain. Lab work significant for hypokalemia 3.1, anion gap 15 and mildly elevated AST/ALT. Unremarkable lactic acid, amylase/lipase. Provided p.o. potassium chloride. UA positive for glycosuria, ketonuria and dehydration with high specific gravity. C. difficile stool culture negative. Stool culture pending. AP CT shows soft tissue within left anterior pelvis and nonspecific presacral soft tissue thickening. No other acute abnormalities noted. Patient provided IV Zofran for ongoing nausea. Discharged with T3 and Zofran starter pack. Advised brat diet and increase oral rehydration with water and Gatorade/Pedialyte. Advised follow-up with PCP/gastroenterology for any ongoing pain/symptoms. Discussed daniel kasper with Dr. Phillips. Undiagnosed new problem with uncertain prognosis? @ -No Drug Therapy requiring intensive monitoring for toxicity (Heparin, Nitro, Insulin, Cardizem)? @ -No Were any procedures done? @ -No Diagnosis/symptom? @ -Abdominal pain, gastroenteritis Acute, or Chronic, or Acute on Chronic? @ -Acute Uncomplicated (without systemic symptoms) or Complicated (systemic symptoms)? @ -Complicated Side effects of treatment? @ -No Exacerbation, Progression, or Severe Exacerbation? @ -No Poses a threat to life or bodily function? How? (Chest pain, [place], [place], pneumonia, PE, COPD, DKA, ARF, appy, cholecystitis, CVA, Diverticulitis, Homicidal, Suicidal, threat to staff... and all critical care pts) @ -No - Lab Data Result diagrams: 04/27/25 11:04 04/27/25 11:04 Lab Results 04/27/25 04/27/25 04/27/25 Range/Units 11:04 11:04 11:04 WBC 6.27 (4.50-10.00) 10*3/uL RBC 5.39 H (4.10-5.20) 10*6/uL Hgb 15.9 H (12.0-15.0) g/dL Hct 44.1 (37.2-46.3) % MCV 81.8 (80.0-97.0) fL MCH 29.5 (27.0-32.0) pg MCHC 36.1 (32.0-37.0) g/dL Plt Count 259 (140-440) 10*3/uL MPV 11.7 (9.5-12.2) fL Immature Gran % (Auto) 0.3 % Neutrophils % 80.1 % Lymphocytes % 9.1 % Monocytes % 9.7 % Eosinophils % 0.5 % Basophils % 0.3 % Immature Gran # 0.02 (0.00-0.04) 10*3/uL Neutrophils # 5.02 (1.80-7.70) 10*3/uL Lymphocytes # 0.57 L (0.90-5.00) 10*3/uL Monocytes # 0.61 (0.20-1.00) 10*3/uL Eosinophils # 0.03 L (0.04-0.35) 10*3/uL Basophils # 0.02 (0.00-0.10) 10*3/uL PT 11.6 (10.0-12.5) sec INR 1.1 (<1.2) APTT 23.8 (22.0-30.0) sec Sodium 135 L (137-145) mmol/L Potassium 3.1 L (3.5-5.1) mmol/L Chloride 104 (98-107) mmol/L Carbon Dioxide 16 L (22-30) mmol/L Anion Gap 15 mmol/L BUN 17 (7-17) mg/dL Creatinine 0.43 L (0.52-1.04) mg/dL Est GFR (CKD-EPI)AfAm >90 (>60 ml/min/1.73 sqM) Est GFR (CKD-EPI)NonAf >90 (>60 ml/min/1.73 sqM) Glucose 167 H (74-99) mg/dL Plasma Lactic Acid Bernardino (0.7-2.0) mmol/L Calcium 9.3 (8.4-10.2) mg/dL Total Bilirubin 1.2 (0.2-1.3) mg/dL AST 37 H (14-36) U/L ALT 49 H (4-34) U/L Alkaline Phosphatase 78 (38-126) U/L Total Protein 7.6 (6.3-8.2) g/dL Albumin 4.7 (3.5-5.0) g/dL Amylase 48 (30-110) U/L Lipase 104 (23-300) U/L Urine Color Urine Appearance (Clear) Urine pH (5.0-8.0) Ur Specific Dumont (1.001-1.035) Urine Protein (Negative) Urine Glucose (UA) (Negative) Urine Ketones (Negative) Urine Blood (Negative) Urine Nitrite (Negative) Urine Bilirubin (Negative) Urine Urobilinogen (<2.0) mg/dL Ur Leukocyte Esterase (Negative) C. difficile (EIA) Intrp (Negative) 04/27/25 04/27/25 04/27/25 Range/Units 11:04 11:11 14:27 WBC (4.50-10.00) 10*3/uL RBC (4.10-5.20) 10*6/uL Hgb (12.0-15.0) g/dL Hct (37.2-46.3) % MCV (80.0-97.0) fL MCH (27.0-32.0) pg MCHC (32.0-37.0) g/dL Plt Count (140-440) 10*3/uL MPV (9.5-12.2) fL Immature Gran % (Auto) % Neutrophils % % Lymphocytes % % Monocytes % % Eosinophils % % Basophils % % Immature Gran # (0.00-0.04) 10*3/uL Neutrophils # (1.80-7.70) 10*3/uL Lymphocytes # (0.90-5.00) 10*3/uL Monocytes # (0.20-1.00) 10*3/uL Eosinophils # (0.04-0.35) 10*3/uL Basophils # (0.00-0.10) 10*3/uL PT (10.0-12.5) sec INR (<1.2) APTT (22.0-30.0) sec Sodium (137-145) mmol/L Potassium (3.5-5.1) mmol/L Chloride (98-107) mmol/L Carbon Dioxide (22-30) mmol/L Anion Gap mmol/L BUN (7-17) mg/dL Creatinine (0.52-1.04) mg/dL Est GFR (CKD-EPI)AfAm (>60 ml/min/1.73 sqM) Est GFR (CKD-EPI)NonAf (>60 ml/min/1.73 sqM) Glucose (74-99) mg/dL Plasma Lactic Acid Bernardino 0.9 (0.7-2.0) mmol/L Calcium (8.4-10.2) mg/dL Total Bilirubin (0.2-1.3) mg/dL AST (14-36) U/L ALT (4-34) U/L Alkaline Phosphatase (38-126) U/L Total Protein (6.3-8.2) g/dL Albumin (3.5-5.0) g/dL Amylase (30-110) U/L Lipase (23-300) U/L Urine Color Light Yellow Urine Appearance Clear (Clear) Urine pH 6.0 (5.0-8.0) Ur Specific Dumont >1.050 H (1.001-1.035) Urine Protein Trace H (Negative) Urine Glucose (UA) 4+ H (Negative) Urine Ketones 2+ H (Negative) Urine Blood Negative (Negative) Urine Nitrite Negative (Negative) Urine Bilirubin Negative (Negative) Urine Urobilinogen <2.0 (<2.0) mg/dL Ur Leukocyte Esterase Negative (Negative) C. difficile (EIA) Intrp Negative (Negative) Disposition Clinical Impression: Abdominal pain, Gastroenteritis Disposition: HOME SELF-CARE Condition: Fair Instructions (If sedation given, give patient instructions): Gastroenteritis (ED), Abdominal Pain (ED) Additional Instructions: Increase intake of bananas, rice, applesauce, tea, toast. Payal tea/juan diego for nausea. Follow-up with PCP/gastroenterology for any ongoing symptoms. Return to ER if experiencing worsening symptoms/pain. Prescriptions: Ondansetron Odt [Zofran Odt] 4 mg PO Q8HR PRN #10 tab PRN Reason: Nausea Is patient prescribed a controlled substance at d/c from ED?: No Referrals: John Newton MD [Primary Care Provider] - 1-2 days Caitlin Cole MD [STAFF PHYSICIAN] - 1-2 days Time of Disposition: 14:16
[2025-04-27 11:19] LABS: Basophils # (A) 0.02 10*3/uL (0.00-0.10); Basophils % (A) 0.3 %; Eosinophils # (A) 0.03 10*3/uL (0.04-0.35); Eosinophils % (A) 0.5 %; HCT 44.1 % (37.2-46.3); HGB 15.9 g/dL (12.0-15.0); Lymphocytes # (A) 0.57 10*3/uL (0.90-5.00); Lymphocytes % (A) 9.1 %; MCH 29.5 pg (27.0-32.0); MCHC 36.1 g/dL (32.0-37.0); MCV 81.8 fL (80.0-97.0); Mean Platelet Volume 11.7 fL (9.5-12.2); Monocytes # (A) 0.61 10*3/uL (0.20-1.00); Monocytes % (A) 9.7 %; Neutrophils # (A) 5.02 10*3/uL (1.80-7.70); Neutrophils % (A) 80.1 %; Platelet Count 259 10*3/uL (140-440); RBC 5.39 10*6/uL (4.10-5.20); RDW 13.2 % (11.5-14.5); WBC 6.27 10*3/uL (4.50-10.00)
[2025-04-27 11:28] LABS: INR 1.1 (<1.2); Partial Thromboplastin Time 23.8 sec (22.0-30.0); Prothrombin Time 11.6 sec (10.0-12.5)
[2025-04-27 11:33] LABS: ALT 49 U/L (4-34); AST 37 U/L (14-36); African American GFR (CKD) >90 (>60 ml/min/1.73 sqM); Albumin 4.7 g/dL (3.5-5.0); Alkaline Phosphatase 78 U/L (38-126); Amylase 48 U/L (30-110); Anion Gap 15 mmol/L; Blood Urea Nitrogen 17 mg/dL (7-17); Calcium 9.3 mg/dL (8.4-10.2); Carbon Dioxide 16 mmol/L (22-30); Chloride 104 mmol/L (98-107); Glucose 167 mg/dL (74-99); Lipase 104 U/L (23-300); Non-African American GFR(CKD) >90 (>60 ml/min/1.73 sqM); Potassium 3.1 mmol/L (3.5-5.1); Sodium 135 mmol/L (137-145); Total Bilirubin 1.2 mg/dL (0.2-1.3); Total Protein 7.6 g/dL (6.3-8.2)
[2025-04-27] MEDS: SODIUM CHLORIDE 0.9% 1,000 ML IV ONE (12:04)
[2025-04-27] MEDS: HYDROmorphone 1 MG/ML 1 ML SYRINGE IVP STA (12:04)
--- NOTE | 2025-04-27 12:27 | CT ---
EXAMINATION TYPE: CT abdomen pelvis w con CT DLP: 641.9 mGycm, Automated exposure control for dose reduction was used. DATE OF EXAM: 04/27/2025 12:09 PM COMPARISON: CT abdomen pelvis 07/14/2024, 01/13/2022 CLINICAL INDICATION:Female, 44 years old with history of diffuse abdominal pain; ABD PAIN TECHNIQUE: Standard CT of the abdomen and pelvis following the administration of 100 cc of Isovue 3 00 IV contrast material. Coronal and sagittal reformats were performed. FINDINGS: LOWER CHEST: The visualized lung bases are clear. Partial visualization of bilateral breast prosthesi s. Trace anterior pericardial effusion. ABDOMEN LIVER: Unremarkable GALLBLADDER AND BILE DUCTS: The gallbladder is surgically absent. Stable expected extra hepatic bilia ry ductal dilatation likely related to post cholecystectomy changes. PANCREAS: Unremarkable. SPLEEN: Unremarkable. ADRENAL GLANDS: Unremarkable. KIDNEYS AND URETERS: No evidence of hydronephrosis or renal calculus. The kidneys enhance symmetrical ly. Stable right renal upper pole 2.4 cm fat-containing lesion consistent with an angiomyolipoma. Con trast is demonstrated within both collecting systems and proximal ureters on the delayed phase. Circu maortic left renal vein. PELVIS BLADDER: Underdistended which limits evaluation. REPRODUCTIVE: The uterus is surgically absent. ABDOMEN & PELVIS STOMACH AND BOWEL: Stomach and duodenum are unremarkable. No focal wall thickening or surrounding inf lammatory changes. No evidence of bowel obstruction. The appendix is within normal limits. PERITONEUM/RETROPERITONEUM: No evidence of pneumoperitoneum or free fluid. Similar presacral soft tis kamla thickening. Multiple surgical clips identified within the left lower abdomen. Decreased size of t he soft tissue within the left anterior pelvis measuring up to 4.4 cm, previously measured up to 5.2 cm. VASCULATURE: No evidence of aortic aneurysm. MUSCULOSKELETAL: No acute osseous abnormalities LYMPH NODES: No gross evidence for lymphadenopathy. SOFT TISSUE/ABDOMINAL WALL: Unremarkable IMPRESSION: 1. Decreased size of soft tissue within the left anterior pelvis abutting the colon with adjacent valdez rgical clips. This is again of uncertain etiology and could represent mass versus ectopic endometrial tissue versus other etiologies. Consider further evaluation with MRI. 2. Stable nonspecific presacral soft tissue thickening. [facility], , 04/27/2025 12:25 PM
[2025-04-27] MEDS: POTASSIUM CHLORIDE ER 20 MEQ TAB.ER PO STA ×2 (12:53)
[2025-04-27] MEDS: ONDANSETRON 4 MG/2 ML VIAL IVP STA (13:40)
[2025-04-27 14:30] VITALS: BP 106/74; PULSE 93; RESP 16
[2025-04-27] MEDS: ONDANSETRON 4 MG ODT STARTER PACK 2 TAB BTL PO STA (14:33)
[2025-04-27 14:36] VITALS: TEMP 97.5
[2025-04-27] MEDS: ACET/COD 300 MG/30 MG STARTER PACK 6 TAB BTL PO STA (14:36)
[2025-04-27 14:48] LABS: Appearance,Urine Clear (Clear); Bilirubin,Urine Negative (Negative); Blood,Urine Negative (Negative); Color,Urine Light Yellow; Glucose,Urine (UA) 4+ (Negative); Leukocyte Esterase,Urine Negative (Negative); Nitrite,Urine Negative (Negative); Protein,Urine Trace (Negative); Urobilinogen,Urine <2.0 mg/dL (<2.0)
[2025-04-27 15:04] LABS: Specific Gravity,Urine >1.050 (1.001-1.035)
[2025-04-27 15:15] LABS: Ketones,Urine 2+ (Negative)
== END 2025-04-27 14:54 | disposition home or self-care (01) ==
LOC: EC 09:53
DX: K52.9 Noninfective gastroenteritis and colitis, unspecified (principal); R10.9 Unspecified abdominal pain; E11.9 Type 2 diabetes mellitus without complications; Z90.49 Acquired absence of other specified parts of digestive tract; Z90.710 Acquired absence of both cervix and uterus; Z87.891 Personal history of nicotine dependence; Z88.1 Allergy status to other antibiotic agents
CPT/HCPCS: 36415; 80053; 82150; 83605; 83690; 85025; 85610; 85730; 81003; 87324; 87045; 87046; 74177; 99285; 96374; 96375; 96361; J2405; J1171; S0119; Q9967

== ENCOUNTER → 2025-05-04 | Outpatient (CLI) | payer BC ==
--- NOTE | 2025-05-04 10:07 | MM ---
Reason for Exam: Hx of breast augmentation, asymptomatic. Last mammogram was performed 1 year(s) and 3 month(s) ago. Patient History: Menarche at age 8. First Full-Term at age 20. Left ovary removed at age 37. Hysterectomy at age 37. Bilateral Implants. Risk Values: Kylie 5 year model risk: 0.8%. NCI Lifetime model risk: 9.4%. Prior Study Comparison: 01/10/2022 Bilateral Screening Mammogram, [facility]. 01/22/2023 Bilateral MG 3D screening mammo w/cad, [facility]. 01/28/2024 Bilateral MG 3D screening mammo w/cad, [facility]. Tissue Density: The breasts are heterogeneously dense, which may obscure small masses. Findings: Analyzed By CAD. The overall appearance of the breasts have changed considerably following placement of bilateral retropectoral silicone implants. There is focal asymmetry upper outer quadrant right breast for which further evaluation is recommended. Possible prominent intramammary lymph node. Otherwise, no suspicious microcalcification or other discrete abnormality is seen. Overall Assessment: Incomplete: need additional imaging evaluation, BI-RAD 0 Management: Special View Mammogram of the right breast. [facility] will attempt to contact patient to return for supplemental views and ultrasound if indicated. [facility], , 05/04/2025 10:04 AM. Electronically signed and approved by: Aimee Salazar M.D. Radiologist
== END | disposition home or self-care (01) ==
LOC: RADMAMWWP 09:21
PROVIDERS: ATTEND Family Medicine
DX: Z12.31 Encounter for screening mammogram for malignant neoplasm of breast (principal); R92.333 Mammographic heterogeneous density, bilateral breasts; Z98.82 Breast implant status
CPT/HCPCS: 77063; 77067

== ENCOUNTER → 2025-05-06 | Outpatient (CLI) | payer BC ==
--- NOTE | 2025-05-06 08:40 | MM ---
Reason for Exam: Additional evaluation requested from abnormal screening. Last screening mammogram was performed less than 1 month ago. Patient History: Menarche at age 8. First Full-Term at age 20. Left ovary removed at age 37. Hysterectomy at age 37. Bilateral Implants. Risk Values: Kylie 5 year model risk: 0.8%. NCI Lifetime model risk: 9.4%. Tissue Density: Right: The breasts are heterogeneously dense, which may obscure small masses. Findings: Analyzed By CAD. Patient with retropectoral silicone implant on the right. Persisting circumscribed 1 cm mass lateral anterior right breast possibly upper outer quadrant. There may be a small hilar notch that may indicate an intramammary lymph node. Further ultrasound evaluation is recommended. Overall Assessment: Incomplete: need additional imaging evaluation, BI-RAD 0 Management: Diagnostic Breast Ultrasound of the right breast. [facility], , 05/06/2025 8:38 AM. Electronically signed and approved by: Aimee Salazar M.D. Radiologist
--- NOTE | 2025-05-06 09:11 | USB ---
Reason for Exam: Additional evaluation requested from abnormal screening. Patient History: Menarche at age 8. First Full-Term at age 20. Left ovary removed at age 37. Hysterectomy at age 37. Bilateral Implants. Risk Values: Kylie 5 year model risk: 0.8%. NCI Lifetime model risk: 9.4%. Technique: Method: Targeted. Prior Study Comparison: 01/22/2023 Bilateral MG 3D screening mammo w/cad, [facility]. 01/28/2024 Bilateral MG 3D screening mammo w/cad, [facility]. 05/04/2025 Bilateral MG 3D screen mammo imp/cad., [facility]. Findings: The lateral section of the breast of the right breast, the axilla of the right breast and the retroareolar of the right breast were scanned. Targeted scanning on the lung the lateral half of the breast 6:00 to 12:00 including scanning of the subareolar region and axilla. At the 8:00 position, 4 cm from the nipple, suspected mammographic correlate, there is a poorly defined heterogeneous area measuring 8 x 7 x 6 mm. Biopsy recommended. No other solid or cystic lesion or axillary adenopathy. Overall Assessment: Suspicious, BI-RAD 4 Management: Ultrasound Core Biopsy of the right breast. Results were given to the patient verbally at the time of exam. [facility], , 05/06/2025 9:04 AM. Electronically signed and approved by: Aimee Salazar M.D. Radiologist
== END | disposition home or self-care (01) ==
LOC: RADMAMWWP 08:08
PROVIDERS: ATTEND Family Medicine
DX: R92.8 Other abnormal and inconclusive findings on diagnostic imaging of breast (principal); R92.331 Mammographic heterogeneous density, right breast; Z98.82 Breast implant status
CPT/HCPCS: 77061; 77065

== ENCOUNTER → 2025-05-12 | Day surgery (SDC) | payer BC ==
--- NOTE | 2025-05-18 14:05 | MM ---
Reason for Exam: Post Procedure Mammogram. Last screening mammogram was performed less than 1 month ago. Patient History: Menarche at age 8. First Full-Term at age 20. Left ovary removed at age 37. Right ovary removed at age 37. Hysterectomy at age 37. Postmenopausal. Bilateral Implants. Risk Values: Kylie 5 year model risk: 0.6%. NCI Lifetime model risk: 6.7%. Prior Study Comparison: 10/13/2020 Bilateral Screening Mammogram, [facility]. 01/10/2022 Bilateral Screening Mammogram, [facility]. 01/22/2023 Bilateral MG 3D screening mammo w/cad, [facility]. 01/28/2024 Bilateral MG 3D screening mammo w/cad, [facility]. 05/04/2025 Bilateral MG 3D screen mammo imp/cad., [facility]. 05/06/2025 Right MG 3D work up w/cad RT, [facility]. Tissue Density: Right: The breasts are heterogeneously dense, which may obscure small masses. Pathology Description: Location: 8 o'clock. Marker Left Behind. Cores: 4 Skin Nicks: 1 Gauge: 18 The procedure of ultrasound guided core biopsy was explained to the patient. Benefits, alternatives, and risks were discussed. An informed consent was then obtained. A time out was performed. The patient was placed in supine positioning for imaging and for the procedure. The overlying skin was prepped and draped in usual sterile fashion. 5 ml 1% lidocaine buffered with bicarbonate was used as anesthetic into the skin and subcutaneous tissue up to area of concern in the right breast 8:00 4 cm from the nipple. A reymundo was made with surgical scalpel. Under ultrasound guidance, a 18-gauge biopsy gun device was used to obtain 4 core samples. Following this, a biopsy clip was left in the lesion. The patient tolerated the procedure well without any immediate complication. The patient was discharged home in stable condition. Postprocedure mammogram: The patient was transferred to mammography for physician ordered post procedure mammogram for clip placement verification. Post procedure mammogram demonstrates appropriate placement of clip. Impression: Successful, uncomplicated ultrasound guided core biopsy of area of concern in the right breast. [facility], , 05/12/2025 10:05 AM. Pathology Results: Result: Benign, Fat necrosis. Pathology and radiology were reviewed. Findings are concordant. RIGHT BREAST, EIGHT O'CLOCK, 4 CM FN, ULTRASOUND GUIDED NEEDLE CORE BIOPSY: Fibrous scar with fat necrosis, chronic and focal acute mastitis and multinucleated histiocytic reaction (see note). Negative for malignancy. Notes The mammogram imaging study dated 05/04/25 states that the patient's breasts have changed considerably after placement of bilateral retropectoral silicone implants. The histologic changes seen may be related to this process. Overall Assessment: Benign Assessment: MG diagnostic mammo RT wo CAD - Right: Benign, BI-RAD 2. Management: Diagnostic Mammogram of the right breast in 6 months. Electronically signed and approved by: Elijah Barrera DO
== END ==
LOC: RADUSWWP 08:13
PROVIDERS: ATTEND Family Medicine
DX: L90.5 Scar conditions and fibrosis of skin (principal); N64.1 Fat necrosis of breast; R92.8 Other abnormal and inconclusive findings on diagnostic imaging of breast; N61.0 Mastitis without abscess; Z78.0 Asymptomatic menopausal state; Z90.721 Acquired absence of ovaries, unilateral
CPT/HCPCS: 88305; 77065; 19083; A4648